=== PATIENT | male | born 1965 | race Caucasian/White ===

== ENCOUNTER 2016-06-04 | Outpatient (CLI) | payer MEDICAID | END 2016-06-04 23:21 | disposition critical access hospital (66) | CPT/HCPCS: A0425; A0429 ==

== ENCOUNTER 2016-06-04 23:54 | Emergency (ER) | payer MEDICAID ==
[2016-06-05] MEDS ORDERED: oxyCODONE 5 MG TABLET PO STA (03:36)
[2016-06-05] MEDS ORDERED: oxyCODONE 5 MG TABLET ONE (03:38)
== END 2016-06-05 03:59 | disposition home or self-care (01) ==
DX: S22.32XA Fracture of one rib, left side, initial encounter for closed fracture (principal); W01.0XXA Fall on same level from slipping, tripping and stumbling without subsequent striking against object, initial encounter; Y92.009 Unspecified place in unspecified non-institutional (private) residence as the place of occurrence of the external cause; F17.200 Nicotine dependence, unspecified, uncomplicated
CPT/HCPCS: 71101; 99283; A9270

== ENCOUNTER 2017-12-01 13:43 | Outpatient (CLI) | payer MEDICAID ==
--- NOTE | 2017-12-01 15:07 | XRAY Report ---
Procedure Date: 12/01/2017 Accession Number: [id number] / [id number] Procedure: XRS - Foot 3 View LT CPT Code: FULL RESULT: EXAM: LEFT FOOT RADIOGRAPHY EXAM DATE: 12/01/2017 02:02 PM. CLINICAL HISTORY: Grand mal seizure last night. Injury. Pain dorsal aspect of the midfoot in the area of the tarsals and proximal metatarsals. COMPARISON: Left calcaneus 07/13/2013. TECHNIQUE: 3 views. FINDINGS: Bones: Normal. No fractures or bone lesions. Joints: Normal. No subluxations. Soft Tissues: Normal. No soft tissue swelling. IMPRESSION: Normal foot radiography. [facility]
== END 2017-12-01 13:44 | disposition home or self-care (01) ==
LOC: DI.S 13:43
PROVIDERS: ATTEND Nurse Practitioner Family
DX: M79.672 Pain in left foot (principal); W18.39XA Other fall on same level, initial encounter; G40.909 Epilepsy, unspecified, not intractable, without status epilepticus

== ENCOUNTER 2018-04-06 08:00 | Outpatient (CLI) | payer MEDICAID | END 2018-04-06 23:59 | disposition home or self-care (01) | LOC: LAB.S 08:00 | DX: G40.219 Localization-related (focal) (partial) symptomatic epilepsy and epileptic syndromes with complex partial seizures, intractable, without status epilepticus (principal) | CPT/HCPCS: 36415; 80346; 81599 ==

== ENCOUNTER 2018-11-23 22:47 | Outpatient (CLI) | payer MEDICAID | END 2018-11-23 22:48 | disposition critical access hospital (66) | LOC: EMS 22:47 | PROVIDERS: ATTEND Surgery | DX: R07.81 Pleurodynia (principal); X58.XXXA Exposure to other specified factors, initial encounter; Y92.009 Unspecified place in unspecified non-institutional (private) residence as the place of occurrence of the external cause | CPT/HCPCS: A0425; A0429; A0999 ==

== ENCOUNTER 2018-11-23 23:20 | Emergency (ER) | payer MEDICAID ==
--- NOTE | 2018-11-23 23:25 | ED Physician Documentation ---
PD HPI TRUNK INJURY - Stated complaint Stated Complaint: PAIN S/P SIEZURE - History obtained from History obtained from: Patient, EMS - History of Present Illness Location: Posterior chest, Right chest, Right back Type of injury: Fall (He was sitting in a chair in believes he had a seizure and fell backwards. He had been drinking as well. He does have a history of seizure disorder and states he averages several per month despite being on antiseizure medicines. He does have a neurologist that he follows with and has been on several different antiepileptics and the current regimen has been the best improvement. He does drink alcohol regularly as well. He fell backwards and struck the right posterior lateral ribs area and hurts there. He denies hitting his head or neck.) Timing - onset: How many minutes ago (30), Today Timing - details: Abrupt onset, Still present Quality: Pain, Sharp Improved by: Rest Worsened by: Moving, Palpating (right posterolateral lower ribs without crepitance.) Associated symtptoms: No: Weakness, Numbness, Discoloration Contributing factors: No: Anticoagulated Where injury occured: Home Similar symptoms before: Diagnosis (He states he had previously broken a couple of ribs in that area that have healed over time and had not been still hurting him.) Review of Systems Constitutional: denies: Fever, Chills Nose: denies: Rhinorrhea / runny nose, Congestion Throat: denies: Sore throat Cardiac: reports: Chest pain / pressure. denies: Palpitations, Pedal edema, Calf pain Respiratory: denies: Dyspnea, Cough GI: denies: Abdominal Pain, Nausea, Diarrhea Skin: denies: Abrasion (s), Laceration (s) Musculoskeletal: reports: Back pain. denies: Neck pain Neurologic: denies: Headache PD PAST MEDICAL HISTORY - Past Medical History Cardiovascular: None Respiratory: None Endocrine/Autoimmune: None GI: None : None HEENT: None Psych: Depression, Anxiety, Panic attacks, Post traumatic stress disorder, Claustrophobia Musculoskeletal: None Derm: None - Present Medications Home Medications: Ambulatory Orders Medication Instructions Recorded Confirmed OXcarbazepine [Trileptal] 900 mg PO BID 10/09/12 06/05/16 Clobazam [Onfi] 10 mg PO DAILY PM 05/24/15 06/05/16 RX: Mirtazapine 15 mg PO DAILY 05/24/15 06/05/16 RX: Prazosin [Minipress] 5 mg PO DAILY PM 05/24/15 06/05/16 RX: oxyCODONE [Roxicodone] 5 mg PO Q6H PRN #20 tablet 06/05/16 RX: raNITIdine [Zantac] 1 tab PO DAILY 06/05/16 06/05/16 Sildenafil Citrate [Sildenafil] 100 mg PO 11/23/18 Hydrocodone/Acetaminophen [Yoder 1 each PO Q6H PRN #20 tablet 11/24/18 5-325 Tablet] RX: Naproxen 375 mg PO BID #20 tablet 11/24/18 - Allergies Allergies/Adverse Reactions: Allergies Allergy/AdvReac Type Severity Reaction Status Date / Time zonisamide Allergy Unknown Verified 11/23/18 23:27 - Social History Does the pt smoke?: Yes Smoking Status: Current every day smoker Does the pt drink ETOH?: Yes Does the pt have substance abuse?: No - Immunizations Immunizations are current?: Yes Immunizations: TDAP >10years/unknown - POLST Patient has POLST: No PD ED PE NORMAL - Vitals Vital signs reviewed: Yes - General General: Alert and oriented X 3, No acute distress, Well developed/nourished - HEENT HEENT: Atraumatic, Pharynx benign - Neck Neck: Supple, no meningeal sign, No bony TTP, No adenopathy - Cardiac Cardiac: RRR - Respiratory Respiratory: No respiratory distress, Clear bilaterally, Other (There is tenderness along the posterior lateral lowest ribs in the posterior axillary line. There is no obvious crepitance or deformity. There is point tenderness however. The abdomen is soft and nontender.) - Abdomen Abdomen: Soft, Non tender - Back Back: No spinal TTP - Derm Derm: Normal color, Warm and dry - Neuro Neuro: Alert and oriented X 3, No motor deficit, Normal speech Results - Vitals Vitals: Vital Signs - 24 hr 11/23/18 11/23/18 11/24/18 23:22 23:29 00:14 Temperature 36.8 C Heart Rate 100 95 88 Respiratory 20 16 Rate Blood Pressure 144/108 H 117/93 H O2 Saturation 94 92 08/06/19 08/06/19 08/06/19 00:19 00:20 01:05 Temperature Heart Rate 88 Respiratory 14 Rate Blood Pressure 110/86 H O2 Saturation 89 L 95 97 11/24/18 02:10 Temperature Heart Rate 84 Respiratory 16 Rate Blood Pressure 103/86 H O2 Saturation 96 Oxygen O2 Source Nasal cannula Oxygen Flow Rate 2 - Labs Labs: Laboratory Tests 11/23/18 11/23/18 23:45 23:45 WBC 5.1 RBC 4.29 L Hgb 14.1 Hct 41.8 L MCV 97.4 H MCH 32.9 H MCHC 33.7 RDW 14.1 Plt Count 166 MPV 8.5 Neut # (Auto) 2.6 Lymph # (Auto) 1.8 [place] # (Auto) 0.5 Eos # (Auto) 0.2 Baso # (Auto) 0.0 Absolute Nucleated RBC 0.00 Nucleated RBC % 0.0 Sodium 139 Potassium 3.8 Chloride 98 L Carbon Dioxide 22 Anion Gap 19.0 H BUN 10 Creatinine 0.8 Estimated GFR (MDRD) 101 Glucose 95 Calcium 9.0 Total Bilirubin 0.5 AST 81 H ALT 54 Alkaline Phosphatase 58 Total Protein 7.6 Albumin 4.5 Globulin 3.1 Albumin/Globulin Ratio 1.5 Lipase 46 Ethyl Alcohol 285.0 - Rads (name of study) chest/abd/pelvis CT (trauma) Radiology: Prelim report reviewed (right posterior rib fractures 11 and 12; healed old fractures at 9 and 10. No lung nor kidney injuries.), See rad report PD MEDICAL DECISION MAKING - ED course Complexity details: re-evaluated patient (He had 2 brief 30-62nd episodes where his arms tensed up and he held them up in the air with slight wavering or clonus. The legs did not have any clonic movements. The face did not have any twitching. He was not responding during that time. This lasted just 30 to 60 seconds and then ceased and he open his eyes immediately and asked what happened. He was immediately conversant and oriented. This did not look like a true seizure.), considered differential, d/w patient, d/w family (His mother subsequently arrived and felt comfortable bringing him home. He does have history of alcohol use regularly. He is reminded that this does not help his seizure disorder. He is comfortable at this time with the pain medications and treatment of the ribs. He has had previous rib injuries so feels familiar. He is discharged ambulatory without assistance.) Departure - Departure Disposition: 01 Home, Self Care Clinical Impression: Fall due to seizure, Seizure disorder Alcohol intoxication Qualifiers: Complication of substance-induced condition: uncomplicated Qualified Code(s): F10.920 - Alcohol use, unspecified with intoxication, uncomplicated Fracture of rib Qualifiers: Encounter type: initial encounter Rib fracture type: multiple ribs Fracture type: closed Laterality: right Qualified Code(s): S22.41XA - Multiple fractures of ribs, right side, initial encounter for closed fracture Condition: Stable Record reviewed to determine appropriate education?: Yes Instructions: ED Alcohol Intoxication, ED Fx Rib Prescriptions: Hydrocodone/Acetaminophen [Yoder 5-325 Tablet] 1 each PO Q6H PRN #20 tablet PRN Reason: Pain RX: Naproxen 375 mg PO BID #20 tablet Comments: Stay well-hydrated. Use naproxen anti-inflammatory twice daily with food for inflammation and pain. To that add Tylenol or hydrocodone if needed for pains of the rib fractures. Purposeful deep breathing several times a day to maintain good aeration in the lungs. Continue usual seizure medicines. Be mindful that alcohol will affect her seizure threshold so will be moderate to minimal and your alcohol consumption. Follow-up with your primary care later this week or early next week, call for an appointment. Discharge Date/Time: 11/24/18 02:27
[2018-11-23] MEDS ORDERED: SODIUM CHLORIDE 0.9% 1,000 ML IV ONE (23:37)
[2018-11-23] MEDS ORDERED: MORPHINE 10 MG/ML VIAL IVP STA (23:37)
[2018-11-23] MEDS ORDERED: KETOROLAC 30 MG/ML VIAL IVP STA (23:37)
[2018-11-23] MEDS ORDERED: LORazepam 2 MG/ML VIAL IVP STA (23:46)
[2018-11-23 23:53] LABS: BASOPHILS % (AUTO) 0.4 %; EOSINOPHILS # (AUTO) 0.2 10^3/uL (0.0-0.7); EOSINOPHILS % (AUTO) 3.9 %; HGB - HEMOGLOBIN 14.1 g/dL (14.0-18.0); LYMPHOCYTES # (AUTO) 1.8 10^3/uL (1.5-3.5); LYMPHOCYTES % (AUTO) 34.4 %; MEAN CORPUSCULAR HEMOGLOBIN 32.9 pg (27.0-31.0); MEAN CORPUSCULAR HGB CONC 33.7 g/dL (32.0-36.0); MEAN CORPUSCULAR VOLUME 97.4 fL (80.0-94.0); MEAN PLATELET VOLUME 8.5 fL (7.4-11.4); MONOCYTES # (AUTO) 0.5 10^3/uL (0.0-1.0); MONOCYTES % (AUTO) 9.4 %; NEUTROPHILS # (AUTO) 2.6 10^3/uL (1.5-6.6); NEUTROPHILS % (AUTO) 51.3 %; PLT - PLATELET COUNT 166 10^3/uL (130-450); RED BLOOD COUNT 4.29 10^6/uL (4.70-6.10); RED CELL DISTRIBUTION WIDTH 14.1 % (12.0-15.0); WHITE BLOOD COUNT 5.1 x10^3/uL (4.8-10.8)
[2018-11-24 00:09] LABS: ALBUMIN 4.5 g/dL (3.2-5.5); ALBUMIN/GLOBULIN RATIO 1.5 (1.0-2.2); BILIRUBIN,TOTAL 0.5 mg/dL (0.2-1.0); CREATININE 0.8 mg/dL (0.6-1.2); TOTAL PROTEIN 7.6 g/dL (6.7-8.2)
[2018-11-24] MEDS ORDERED: IOVERSOL 320 100 ML VIAL IVP ONE ×2 (01:04)
--- NOTE | 2018-11-24 01:38 | CT Report ---
Reason: fall with right flank/ribs injury Procedure Date: 11/24/2018 Accession Number: [id number] / [id number] Procedure: CT - Abdomen/Pelvis W CPT Code: FULL RESULT: EXAM: CT ABDOMEN AND PELVIS EXAM DATE: 11/24/2018 01:00 AM. CLINICAL HISTORY: Fall with right flank/ribs injury. COMPARISONS: None. TECHNIQUE: Routine helical CT imaging was performed through the abdomen and pelvis. IV contrast: 100 mL Optiray 320. Enteric contrast: No. Reconstructions: Coronal and sagittal. In accordance with CT protocol optimization, one or more of the following dose reduction techniques were utilized for this exam: automated exposure control, adjustment of mA and/or KV based on patient size, or use of iterative reconstructive technique. FINDINGS: Lung Bases: Unremarkable. Liver: The liver demonstrates slightly decreased attenuation with no focal lesions. Gallbladder/Bile Ducts: Unremarkable. Spleen: Normal. Pancreas: Normal. Adrenal Glands: Normal. Kidneys: Normal. No masses or hydronephrosis. Peritoneal Cavity/Bowel: Normal. No free fluid, free air or adenopathy. No masses or acute inflammatory process. The appendix is well-visualized and normal. Pelvic Organs: Normal. The bladder and visualized pelvic organs are within normal limits. Vasculature: Atherosclerotic aorta changes without evidence of aneurysm. Bones: Posterior right 12th rib fracture. There are healing right lateral 9th and 10th rib fractures. Other: None. IMPRESSION: 1. Posterior right 12th rib fracture. 2. No acute solid or hollow abdominal visceral injury. [facility]
--- NOTE | 2018-11-24 01:39 | CT Report ---
Reason: fall with right ribs/flank injury Procedure Date: 11/24/2018 Accession Number: [id number] / [id number] Procedure: CT - CHEST W CPT Code: FULL RESULT: EXAM: CT CHEST EXAM DATE: 11/24/2018 01:00 AM. CLINICAL HISTORY: Fall with right ribs/flank injury. COMPARISONS: CHEST W/ 04/08/2014 10:44 AM. TECHNIQUE: Routine helical CT imaging was performed through the chest. IV contrast: Nonionic. Reconstructions: Coronal and sagittal. In accordance with CT protocol optimization, one or more of the following dose reduction techniques were utilized for this exam: automated exposure control, adjustment of mA and/or KV based on patient size, or use of iterative reconstructive technique. FINDINGS: Lungs/Pleura: Emphysema. No alveolar consolidations seen. No significant pleural effusion. No pneumothorax. Mediastinum: Heart size is normal. Coronary artery calcifications. No lymphadenopathy seen. Ascending aorta measures 3.6 cm. No aortic dissection. Wall thickening in the distal esophagus. Bones: Right 11th and 12th rib fractures which appear acute. Right ninth and 10th rib fractures which could be acute or subacute. Left 10th rib fracture which appears older. Visualized Abdomen: See separate abdomen and pelvis CT report. Other: None. IMPRESSION: 1. Acute fractures of the right 11th and 12th ribs. Acute versus subacute fractures of the right ninth and 10th ribs. 2. Emphysema. 3. Coronary artery calcifications. 4. Wall thickening in the distal esophagus. Correlate for any symptoms of esophagitis. [facility]
--- NOTE | 2018-11-24 01:46 | CT Report ---
Reason: recurrent seizures Procedure Date: 11/24/2018 Accession Number: [id number] / [id number] Procedure: CT - HEAD WO CPT Code: FULL RESULT: EXAM: CT HEAD EXAM DATE: 11/24/2018 01:08 AM. CLINICAL HISTORY: Recurrent seizures. COMPARISON: HEAD W/O 05/24/2015 5:52 AM. TECHNIQUE: Multiaxial CT images were obtained from the foramen magnum to the vertex. Reformats: Sagittal and coronal. IV contrast: None. In accordance with CT protocol optimization, one or more of the following dose reduction techniques were utilized for this exam: automated exposure control, adjustment of mA and/or KV based on patient size, or use of iterative reconstructive technique. FINDINGS: Parenchyma: No intraparenchymal hemorrhage. No evidence of mass, midline shift, or CT findings of infarction. Small focus of encephalomalacia at the inferior aspect of the right frontal lobe. Briceno-white differentiation is distinct. Extraaxial Spaces: Normal for age. No subdural or epidural collections identified. Ventricles: Mildly prominent for age. Sinuses and Orbits: Imaged paranasal sinuses, orbits, and mastoids show no significant abnormality. Bones: No evidence of fracture or calvarial defect. Other: There is contrast enhancement from prior examinations. No abnormal enhancement is seen. IMPRESSION: 1. Ventricles appear mildly prominent but unchanged. 2. Small focus of encephalomalacia at the inferior aspect of the right frontal lobe, in the area of prior hemorrhage. 3. No acute abnormality seen. [facility]
[2018-11-24 02:11] VITALS: BP 103/86
== END 2018-11-24 02:27 | disposition home or self-care (01) ==
LOC: EDUNIT# → ED 23:20
DX: S22.41XA Multiple fractures of ribs, right side, initial encounter for closed fracture (principal); W07.XXXA Fall from chair, initial encounter; G40.909 Epilepsy, unspecified, not intractable, without status epilepticus; F10.920 Alcohol use, unspecified with intoxication, uncomplicated; F17.200 Nicotine dependence, unspecified, uncomplicated
CPT/HCPCS: 36415; 70450; 71260; 74177; 80053; 80320; 83690; 85025; 96374; 99283; 99284; J2060; Q9967

== ENCOUNTER 2019-05-28 12:59 | Outpatient (CLI) | payer MEDICAID ==
--- NOTE | 2019-05-28 16:55 | XRAY Report ---
Reason: RIB PAIN, LEFT SIDED Procedure Date: 05/28/2019 Accession Number: [id number] / [id number] Procedure: XRS - Ribs w/PA Chest LT CPT Code: Final Report FULL RESULT: EXAM: LEFT RIB RADIOGRAPHY EXAM DATE: 05/28/2019 01:41 PM. CLINICAL HISTORY: RIB PAIN, LEFT SIDED. COMPARISON: RIBS W/PA CHEST LT 06/05/2016 1:12 AM. TECHNIQUE: 1 view of the chest and 2 views of the ribs. FINDINGS: Bones: Lateral right eighth and ninth rib fracture with mild displacement. Lungs: No focal opacities. No pneumothorax. No pleural effusions. Mediastinum: Heart and mediastinal contours are unremarkable. Other: None. IMPRESSION: 1. Lateral right eighth and ninth rib fractures. 2. No pneumothorax or pleural effusion. [facility]
--- NOTE | 2019-05-28 16:56 | XRAY Report ---
Reason: HIP JOINT PAIN, RIGHT Procedure Date: 05/28/2019 Accession Number: [id number] / [id number] Procedure: XRS - Hip w/Pelvis 2-3V RT CPT Code: Final Report FULL RESULT: EXAM: RIGHT HIP RADIOGRAPHY EXAM DATE: 05/28/2019 01:41 PM. CLINICAL HISTORY: HIP JOINT PAIN, RIGHT. COMPARISON: None. TECHNIQUE: 2 views. FINDINGS: Bones: Normal. No fractures or bone lesion. Joints: Normal. No dislocation. The hip joint space is preserved. Soft Tissues: Normal. No soft tissue swelling. IMPRESSION: Normal right hip radiography. [facility]
--- NOTE | 2019-05-28 16:57 | XRAY Report ---
Reason: RIB PAIN LEFT, HIP JOINT RIGHT, KNEE JOINT RIGHT Procedure Date: 05/28/2019 Accession Number: [id number] / [id number] Procedure: XRS - Knee 3 View RT CPT Code: Final Report FULL RESULT: EXAM: RIGHT KNEE RADIOGRAPHY EXAM DATE: 05/28/2019 01:41 PM. CLINICAL HISTORY: RIB PAIN LEFT, HIP JOINT RIGHT, KNEE JOINT RIGHT. COMPARISON: FOOT 3 VIEW LT 12/01/2017 1:59 PM. TECHNIQUE: 3 views. FINDINGS: Bones: Normal. No fractures or bone lesions. Joints: Normal. No effusion. No subluxations. Soft Tissues: Normal. No soft tissue swelling. IMPRESSION: Normal right knee radiography. [facility]
== END 2019-05-28 13:00 | disposition home or self-care (01) ==
LOC: DI.S 12:59
PROVIDERS: ATTEND Family Medicine
DX: S22.41XA Multiple fractures of ribs, right side, initial encounter for closed fracture (principal); M25.551 Pain in right hip; M25.561 Pain in right knee

== ENCOUNTER 2019-06-21 20:58 | Outpatient (CLI) | payer MEDICAID | END 2019-06-21 20:59 | disposition critical access hospital (66) | LOC: EMS 20:58 | PROVIDERS: ATTEND Surgery | DX: S09.92XA Unspecified injury of nose, initial encounter (principal); S01.81XA Laceration without foreign body of other part of head, initial encounter; R41.0 Disorientation, unspecified; W18.30XA Fall on same level, unspecified, initial encounter; Y92.009 Unspecified place in unspecified non-institutional (private) residence as the place of occurrence of the external cause | CPT/HCPCS: A0425; A0429; A0999 ==

== ENCOUNTER 2019-06-21 21:35 | Emergency (ER) | payer MEDICAID ==
--- NOTE | 2019-06-21 22:52 | ED Physician Documentation ---
History of Present Illness - Stated complaint Stated Complaint: ? 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 c/o left hand pain, nasal pain and swelling, and facial lacerations noted by medics. says he has been compliant with medications as prescribed. Admits to drinking some alcohol earlier this evening. Review of Systems Constitutional: reports: Reviewed and negative Eyes: reports: Reviewed and negative Cardiac: reports: Reviewed and negative Respiratory: reports: Reviewed and negative GI: reports: Reviewed and negative Skin: reports: Laceration (s) Musculoskeletal: reports: Extremity pain (left hand), Extremity swelling (left hand). denies: Neck pain, Back pain Neurologic: reports: Head injury, LOC. denies: Generalized weakness, Focal weakness, Numbness, Headache PD PAST MEDICAL HISTORY - Past Medical History Cardiovascular: None Respiratory: None Neuro: Seizure disorder Endocrine/Autoimmune: None GI: None : None HEENT: None Psych: Depression, Anxiety, Panic attacks, Post traumatic stress disorder, Claustrophobia Musculoskeletal: None Derm: None - Present Medications Home Medications: Ambulatory Orders Medication Instructions Recorded Confirmed OXcarbazepine [Trileptal] 900 mg PO BID 10/09/12 06/05/16 Clobazam [Onfi] 10 mg PO DAILY PM 05/24/15 06/05/16 Mirtazapine 15 mg PO DAILY 05/24/15 06/05/16 Prazosin [Minipress] 5 mg PO DAILY PM 05/24/15 06/05/16 oxyCODONE [Roxicodone] 5 mg PO Q6H PRN #20 tablet 06/05/16 raNITIdine [Zantac] 1 tab PO DAILY 06/05/16 06/05/16 Sildenafil Citrate [Sildenafil] 100 mg PO 11/23/18 Hydrocodone/Acetaminophen [[place] 1 each PO Q6H PRN #20 tablet 11/24/18 5-325 Tablet] Naproxen 375 mg PO BID #20 tablet 11/24/18 Hydrocodone/Acetaminophen 1 - 2 each PO Q6H PRN #14 tablet 06/22/19 [Hydrocodon-Acetaminophen 5-325] - Allergies Allergies/Adverse Reactions: Allergies Allergy/AdvReac Type Severity Reaction Status Date / Time zonisamide Allergy Unknown Verified 11/23/18 23:27 - Social History Does the pt smoke?: Yes Smoking Status: Current every day smoker Does the pt drink ETOH?: Yes ETOH Use: Liquor Does the pt have substance abuse?: Yes Substance Use and Type: Marijuana - Immunizations Immunizations are current?: No Immunizations: TDAP >10years/unknown - POLST Patient has POLST: No PD ED PE NORMAL - Vitals Vital signs reviewed: Yes - General General: Alert and oriented X 3, No acute distress, Well developed/nourished - HEENT HEENT: PERRL, EOMI - Neck Neck: Supple, no meningeal sign, No bony TTP - Cardiac Cardiac: RRR, No murmur, No gallop, No rub - Respiratory Respiratory: No respiratory distress, Clear bilaterally - Abdomen Abdomen: Soft, Non tender - Back Back: No spinal TTP - Neuro Neuro: Alert and oriented X 3, bag tester 2-12 intact, No motor deficit, No sensory deficit, Normal speech Eye Opening: Spontaneous Motor: Obeys Commands Verbal: Oriented GCS Score: 15 PD ED PE EXPANDED - HEENT HEENT: PERRL, EOMI. No: Tongue laceration HEENT Visual: 1 - laceration (2 cm length) 2 - laceration (2 cm length, does not involve lid margin nor is it through and through) 3 - bruising, swelling, tenderness - Extremities Extremities: Tenderness, Swelling ASHLEY UE/Hands Visual: 1 - swelling, tenderness Results - Vitals Vitals: Vital Signs - 24 hr 06/21/19 06/21/19 06/22/19 21:42 22:32 00:09 Temperature 36.3 C L Heart Rate 115 H 100 95 Respiratory 22 17 19 Rate Blood Pressure 129/90 H 114/85 H 118/77 O2 Saturation 94 92 94 06/22/19 01:06 Temperature Heart Rate 94 Respiratory 14 Rate Blood Pressure 120/83 H O2 Saturation 94 Oxygen O2 Source Room air - Labs Labs: Laboratory Tests 06/21/19 06/21/19 21:55 21:55 WBC 5.3 RBC 4.01 L Hgb 13.7 L Hct 40.6 L MCV 101.2 H MCH 34.2 H MCHC 33.7 RDW 14.5 Plt Count 167 MPV 9.5 Neut # (Auto) 3.0 Lymph # (Auto) 1.5 [place] # (Auto) 0.6 Eos # (Auto) 0.1 Baso # (Auto) 0.0 Absolute Nucleated RBC 0.00 Nucleated RBC % 0.0 Sodium 139 Potassium 3.2 L Chloride 99 L Carbon Dioxide 23 Anion Gap 17.0 H BUN 9 Creatinine 0.7 Estimated GFR (MDRD) 117 Glucose 107 H Calcium 9.5 Total Bilirubin 0.7 AST 57 H ALT 38 Alkaline Phosphatase 55 Total Protein 6.9 Albumin 4.2 Globulin 2.7 Albumin/Globulin Ratio 1.6 Lipase 52 H Ethyl Alcohol 285.4 - Rads (name of study) CTH' Radiology: Prelim report reviewed, See rad report CT facial bones Radiology: Prelim report reviewed, See rad report left hand xrays Radiology: Prelim report reviewed, See rad report Procedures - Laceration (location) Face right Length in cm: 2 (right eyebrow) Wound type: Linear, Into subcut fat, Clean Neurovascular status: Sensory intact, Motor intact, Vascular intact Tendon involvement: Tendon intact Anesthesia: Lidocaine 1% Wound Preparation: Chlorhexadine Skin layer closure: Prolene, Interrupted, Size #-0 - enter number (6-0) Other: Patient tolerated well, No complications, Neurovascular intact, Tetanus booster given Complexity: Simple Eyelid right Length in cm: 2 (lateral to right eye ) Wound type: Linear Neurovascular status: Sensory intact, Motor intact, Vascular intact Tendon involvement: Tendon intact Anesthesia: Lidocaine 1% Wound Preparation: Chlorhexadine Skin layer closure: Nylon, Interrupted, Running, Size #-0 - enter number (6-0) Other: Patient tolerated well, No complications, Neurovascular intact, Tetanus booster given Complexity: Simple - Splint (location) Upper extremity left Splint applied by: Tech Type of splint: Fiberglass, Thumb spica Other: Patient tolerated well, No complications, Neurovascular intact, Good alignment, Sling provided PD MEDICAL DECISION MAKING - ED course Complexity details: reviewed results, re-evaluated patient, considered differential, d/w patient Departure - Departure Disposition: 01 Home, Self Care Clinical Impression: Syncope, Face lacerations, Hand fracture, left, Nasal fracture Condition: Good Instructions: ED Fx Nasal Conf W X Ray, ED Fx Hand Closed, ED Laceration Facial Sutr Tape, ED Sling, ED Splint Care Fiberglass, ED Fainting Unkn Cause Follow-Up: Leah Nam ARNP [Primary Care Provider] - Partha Hankins MD [Provider Admit Priv/Credential] - Prescriptions: Hydrocodone/Acetaminophen [Hydrocodon-Acetaminophen 5-325] 1 - 2 each PO Q6H PRN #14 tablet PRN Reason: pain Comments: Follow up with orthopedic surgery within 5 days for evaluation of the left hand fracture. Follow up with your primary care provider in one week for removal of the stitches (adjacent to right eye as well as in the right eyebrow; blue sutures were used on the eyebrow to make it easier to see the sutures for removal). You should also follow up with a specialist regarding the nasal fracture; follow up should be within 4-5 days and can be with ENT ([id number]), OMFS (oroma xillofacial surgery), or plastic surgery. Discharge Date/Time: 06/22/19 01:35
[2019-06-21] MEDS ORDERED: TETANUS/DIPHTHERIA/PERTUSSIS 0.5 ML SYRINGE IM ONE (23:09)
[2019-06-21 23:29] LABS: BASOPHILS % (AUTO) 0.6 %; EOSINOPHILS # (AUTO) 0.1 10^3/uL (0.0-0.7); EOSINOPHILS % (AUTO) 2.4 %; HGB - HEMOGLOBIN 13.7 g/dL (14.0-18.0); LYMPHOCYTES # (AUTO) 1.5 10^3/uL (1.5-3.5); LYMPHOCYTES % (AUTO) 28.6 %; MEAN CORPUSCULAR HEMOGLOBIN 34.2 pg (27.0-31.0); MEAN CORPUSCULAR HGB CONC 33.7 g/dL (32.0-36.0); MEAN CORPUSCULAR VOLUME 101.2 fL (80.0-94.0); MEAN PLATELET VOLUME 9.5 fL (7.4-11.4); MONOCYTES # (AUTO) 0.6 10^3/uL (0.0-1.0); MONOCYTES % (AUTO) 11.3 %; NEUTROPHILS % (AUTO) 56.5 %; PLT - PLATELET COUNT 167 10^3/uL (130-450); RED BLOOD COUNT 4.01 10^6/uL (4.70-6.10); RED CELL DISTRIBUTION WIDTH 14.5 % (12.0-15.0); WHITE BLOOD COUNT 5.3 x10^3/uL (4.8-10.8)
[2019-06-21] MEDS ORDERED: LIDOCAINE 1% 2 ML VIAL SUBQ STA (23:37)
[2019-06-21 23:39] LABS: ALBUMIN 4.2 g/dL (3.2-5.5); ALBUMIN/GLOBULIN RATIO 1.6 (1.0-2.2); BILIRUBIN,TOTAL 0.7 mg/dL (0.2-1.0); CALCIUM 9.5 mg/dL (8.5-10.3); CREATININE 0.7 mg/dL (0.6-1.2); TOTAL PROTEIN 6.9 g/dL (6.7-8.2)
--- NOTE | 2019-06-21 23:50 | CT Report ---
Reason: syncope, head injury Procedure Date: 06/21/2019 Accession Number: [id number] / [id number] Procedure: CT - HEAD WO CPT Code: Final Report FULL RESULT: EXAM: CT HEAD EXAM DATE: 06/21/2019 11:39 PM. CLINICAL HISTORY: Syncope. Head injury. COMPARISON: HEAD W/O 11/24/2018 12:49 AM. TECHNIQUE: Multiaxial CT images were obtained from the foramen magnum to the vertex. Reformats: Sagittal and coronal. IV contrast: None. In accordance with CT protocol optimization, one or more of the following dose reduction techniques were utilized for this exam: automated exposure control, adjustment of mA and/or KV based on patient size, or use of iterative reconstructive technique. FINDINGS: Parenchyma: No intraparenchymal hemorrhage. Stable small area of inferior right frontal lobe encephalomalacia. No evidence of mass, midline shift, or CT findings of infarction. Briceno-white differentiation is distinct. Extraaxial Spaces: Normal for age. No subdural or epidural collections identified. Ventricles: Normal in size and position. Sinuses and Orbits: Imaged paranasal sinuses, orbits, and mastoids show no significant abnormality. Bones: No evidence of fracture or calvarial defect. Other: None. IMPRESSION: No acute intracranial abnormality or skull fracture identified. [facility]
--- NOTE | 2019-06-21 23:56 | CT Report ---
Reason: syncope, facial injuries Procedure Date: 06/21/2019 Accession Number: [id number] / [id number] Procedure: CT - MAXILLOFACIAL WO CPT Code: Final Report FULL RESULT: EXAM: CT MAXILLOFACIAL WITHOUT CONTRAST EXAM DATE: 06/21/2019 11:39 PM CLINICAL HISTORY: Syncope, facial injuries. COMPARISONS: HEAD W/O 06/21/2019 11:26 PM, HEAD W/O 11/24/2018 12:49 AM. TECHNIQUE: Thin-section axial images were acquired of the face without contrast. Post-processing: Coronal and sagittal reformats. Other: None. In accordance with CT protocol optimization, one or more of the following dose reduction techniques were utilized for this exam: automated exposure control, adjustment of mA and/or KV based on patient size, or use of iterative reconstructive technique. FINDINGS: Bones: Moderately comminuted bilateral nasal fractures with leftward angulation of the major fracture fragments. No other displaced fracture or bone lesion. Temporomandibular Joints: The temporomandibular joints are symmetric and normally located. Sinuses: No significant abnormality with note of minimal mucosal thickening in the right maxillary sinus and opacification of a couple of ethmoid air cells. Other: None. IMPRESSION: Moderately comminuted bilateral nasal fractures with leftward angulation of the major fracture fragments. RADIA
--- NOTE | 2019-06-22 00:37 | XRAY Report ---
Reason: fall, pain, tenderness Procedure Date: 06/22/2019 Accession Number: [id number] / [id number] Procedure: XR - Hand 3 View LT CPT Code: Final Report FULL RESULT: EXAM: LEFT HAND RADIOGRAPHY EXAM DATE: 06/22/2019 12:26 AM. CLINICAL HISTORY: Fall, pain, tenderness. COMPARISON: None. TECHNIQUE: 3 views. FINDINGS: Bones: Fractured base of the first metacarpal, with mild comminution and intra-articular extension and radial subluxation of the distal fracture segment. Joints: No dislocations. A portion of the base of the first metacarpal is still articulating with the trapezium. Soft Tissues: Mild soft tissue swelling. IMPRESSION: Comminuted fracture of the base of the first metacarpal with intra-articular extension. RADIA
[2019-06-22] MEDS ORDERED: oxyCODONE 5 MG TABLET PO STA (00:59)
[2019-06-22 01:08] VITALS: BP 120/83
== END 2019-06-22 01:35 | disposition home or self-care (01) ==
LOC: EDUNIT# → ED 21:35
DX: S01.81XA Laceration without foreign body of other part of head, initial encounter (principal); S01.111A Laceration without foreign body of right eyelid and periocular area, initial encounter; S02.2XXA Fracture of nasal bones, initial encounter for closed fracture; S62.232A Other displaced fracture of base of first metacarpal bone, left hand, initial encounter for closed fracture; W18.30XA Fall on same level, unspecified, initial encounter; F17.200 Nicotine dependence, unspecified, uncomplicated
CPT/HCPCS: 12013; 36415; 70450; 70486; 73130; 80053; 80320; 83690; 85025; 90471; 90715; 93005; 99284; A9270

== ENCOUNTER 2020-03-14 07:34 | Outpatient (CLI) | payer MEDICAID ==
--- NOTE | 2020-03-14 12:31 | PROVIDER PROGRESS NOTE ---
Progress Note Chief complaint: Traumatic fall following seizure History of present illness: 55-year-old male with history of seizure disorder on multiple antiepileptic's who is notable for a past history of periictal trauma including intracranial hemorrhage who presents today following 2 episodes unwitnessed seizure activity with resultant rib fractures/scapular fracture. Seen in the emergency room and requested for trauma evaluation. Patient obviously is amnestic to event. Again as per above, this was not witnessed. Patient reports having gotten up overnight having suffered seizure with resultant right chest wall pain as well as back pain, and again suffered a subsequent seizure for which she continued to have right chest pain and back pain postictal. Only significant history is prior intracranial hemorrhage by report again related to seizure activity. Seizure disorder diagnosed 10 years prior and unrelated to trauma or other associated inciting pathology. Past medical history and past surgical history reviewed and, in the patients, electronic medical record. Allergies reviewed and within the patient's electronic medical record. Medications reviewed and within the patient's electronic medical record. Review of systems performed and all negative except as noted below/above Please see electronic medical record for the patient's social history Trauma physical exam: Airway: Patient speaking without any respiratory distress, bilateral breath sounds auscultated across all lung morales Breathing: Bilateral breath sounds auscultated across all lung morales, imaging with no evidence of pneumothorax or hemothorax Circulation: Patient with bilateral peripheral IV access, IV crystalloids running as per protocol, hemodynamically acceptable Patient was evaluated across all extremities please see below and was appropriately exposed to afford such. 1. Head: PERRLA, EOMI, no david orbital ecchymoses, ears with tympanic membranes intact no otorrhea, no rhinorrhea, c-collar NOT in place, cranial nerves II through XII intact grossly. 2. C-spine clearance: No tenderness to palpation on full range of motion: Full range of motion with no tenderness midline C-spine on flexion and extension Full range of motion with known tenderness midline C-spine on lateral rotation left and right 3. Chest as per above with equal breath sounds bilaterally Right chest wall, notably posterior, tenderness - no crepitus or other concerning features please see imaging below no splinting no respiratory distress. 4. S1-S2 regular rate rhythm 5. Abdomen soft nontender nondistended no rebound no guarding, FAST performed with no fluid noted in the splenorenal space, hepatorenal space, suprapubic space, or pericardial sac. 6. Patient moving all extremities 7. GCS 15, alert awake and oriented x3 8. No focal sensorimotor deficits bilaterally, no spinal step-offs or tenderness along the thoracic, lumbar spines. 9. No genitourinary complaints or perianal complaints. Imaging: CT chest impression: 1. Unchanged emphysematous changes. 2. Linear right basilar opacity suggestive of atelectasis/dependent fluid 3. Stable 3 mm nodule since 2014. No priors are available for comparison. 4. Acute/subacute right lateral sixth, seventh as well as posterior right ninth and 10th rib fractures are present. No pneumothorax. 5. Fractures present in the inferior aspect of the right scapula CT abdomen pelvis: 1. Minimal posterior right basilar atelectasis 2. Old right rib fractures 3. No evidence of acute abdominal process CT head impression: 1. No acute intracranial process CT C-spine impression: degenerative changes without visualization fracture Right humerus x-ray: Mildly displaced fracture at the inferior angle of the scapula. Possible minimally displaced rib fractures. Right shoulder film: 1. Small mildly displaced fracture of the inferior tip of the scapula. Finding may be further evaluated with a CT if indicated clinically. 2. Questionably minimally displaced fracture of the right lateral sixth rib. Assessment and plan: 55yo Male Hospital day #0 admitted status post trauma with right scapula and right rib fractures x4 in the setting of multiple seizures. No other occult pathology noted on CT of the head, C-spine, nor chest abdomen pelvis CTs as well. Given extent of injuries patient will be admitted to ICU for pain management. Plan going forward is as follows: (1) GI - IVF, diet. GI ppx. Opiate sparring analgesia. (2) Trauma - tertiary survey. (3) Renal/Lytes - continue IVF. Renal indices within normal limits. (4) Respiratory - O2 as necessary. Continue nebulizers. Continue IS. Chest XR. (5) Heme - Will continue with DVT ppx. H/H stable. (6) Cardiovascular - HD acceptable. (7) Neuro - Opiate sparring analgesia. Continue antiepileptics. Will request medicine/hospitalist consultation to assure appropriate levels and management of seizure disorder. Antispasmodics with Robaxin. Toradol. Neuropathic agents. (8) PT/OT.
== END 2020-03-14 07:35 | disposition home or self-care (01) ==
LOC: EMS 07:34
PROVIDERS: ATTEND Surgery
DX: R07.89 Other chest pain (principal); M43.6 Torticollis; M25.511 Pain in right shoulder
CPT/HCPCS: A0425; A0427; A0999

== ENCOUNTER 2020-03-14 08:13 | Inpatient (IN) | payer MEDICAID ==
[2020-03-14] MEDS ORDERED: KETOROLAC 15 MG/ML VIAL IVP STA (09:04)
--- NOTE | 2020-03-14 09:11 | ED Physician Documentation ---
History of Present Illness - Stated complaint Stated Complaint: SZ/GLF - Chief complaint Chief Complaint: Neuro - History obtained from History obtained from: Patient - Additonal information Additional information: 55-year-old man with past medical history of seizure disorder with multiple seizures a month, on Tegretol (oxcarbazepine) and clobazam, neurologist at [facility], p/w R shoulder and chest wall pain after having two seizures overnight. Patient is unsure of timing but knows that he woke in the middle of the night and had A seizure, went to the bathroom and urinated then w ent back to bed and had another seizure. He waited to go to the emergency room until this morning when he realized he had a bruise on his right upper back and severe right shoulder and lateral chest wall pain. The pain is constant, aching, worse with moving the shoulder, nonradiating.Patient is alert and oriented at baseline, and has no other complaints at this time.States that he felt normal yesterday. Review of Systems Ten Systems: 10 systems reviewed and negative Constitutional: denies: Fever, Chills Respiratory: denies: Cough Skin: reports: Abrasion (s) (R posterolateral chest wall) Musculoskeletal: reports: Other (R shoulder and posterolateral chest wall pain) Neurologic: reports: Seizure PD PAST MEDICAL HISTORY - Past Medical History Cardiovascular: None Respiratory: None Neuro: Seizure disorder Endocrine/Autoimmune: None GI: None : None HEENT: None Psych: Depression, Anxiety, Panic attacks, Post traumatic stress disorder, Claustrophobia Musculoskeletal: None Derm: None - Present Medications Home Medications: Ambulatory Orders Medication Instructions Recorded Confirmed OXcarbazepine [Trileptal] 900 mg PO BID 10/09/12 06/05/16 Clobazam [Onfi] 10 mg PO DAILY PM 05/24/15 06/05/16 Mirtazapine 15 mg PO DAILY 05/24/15 06/05/16 Prazosin [Minipress] 5 mg PO DAILY PM 05/24/15 06/05/16 oxyCODONE [Roxicodone] 5 mg PO Q6H PRN #20 tablet 06/05/16 raNITIdine [Zantac] 1 tab PO DAILY 06/05/16 06/05/16 Sildenafil Citrate [Sildenafil] 100 mg PO 11/23/18 Hydrocodone/Acetaminophen [Hammond 1 each PO Q6H PRN #20 tablet 11/24/18 5-325 Tablet] Naproxen 375 mg PO BID #20 tablet 11/24/18 Hydrocodone/Acetaminophen 1 - 2 each PO Q6H PRN #14 tablet 06/22/19 [Hydrocodon-Acetaminophen 5-325] - Allergies Allergies/Adverse Reactions: Allergies Allergy/AdvReac Type Severity Reaction Status Date / Time zonisamide Allergy Unknown Verified 03/14/20 08:24 - Social History Does the pt smoke?: Yes Smoking Status: Current every day smoker Does the pt drink ETOH?: Yes Does the pt have substance abuse?: Yes - Immunizations Immunizations are current?: No Immunizations: TDAP >10years/unknown - POLST Patient has POLST: No PD ED PE NORMAL - Vitals Vital signs reviewed: Yes - General General: Alert and oriented X 3 - HEENT HEENT: Atraumatic, PERRL, EOMI - Neck Neck: Supple, no meningeal sign, No bony TTP (c spine cleared per nexus criteria) - Cardiac Cardiac: RRR - Respiratory Respiratory: No respiratory distress, Clear bilaterally - Abdomen Abdomen: Non tender, Non distended - Male Male : Deferred - Rectal Rectal: Deferred - Back Back: No spinal TTP - Derm Derm: Other (R lateral upperback ecchymosis/abrasion) - Extremities Extremities: Other (R shoulder ttp and tender with rom. R humerus ttp. 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, No motor deficit, No sensory deficit, Normal speech - Psych Psych: Normal mood, Normal affect Results - Vitals Vitals: Vital Signs - 24 hr 03/14/20 03/14/20 08:17 09:40 Temperature 37.4 C Heart Rate 100 96 Respiratory 18 16 Rate Blood Pressure 120/79 122/92 H O2 Saturation 99 96 Oxygen O2 Source Room air - Labs Labs: Laboratory Tests 03/14/20 03/14/20 03/14/20 10:05 10:05 10:05 WBC 3.9 L RBC 3.24 L Hgb 11.3 L Hct 34.3 L MCV 105.9 H MCH 34.9 H MCHC 32.9 RDW 14.7 Plt Count 129 L MPV 8.4 Neut # (Auto) 2.8 Lymph # (Auto) 0.8 L [place] # (Auto) 0.3 Eos # (Auto) 0.0 Baso # (Auto) 0.0 Absolute Nucleated RBC 0.00 Nucleated RBC % 0.0 Sodium 137 Potassium 3.6 Chloride 100 L Carbon Dioxide 23 Anion Gap 14.0 H BUN 9 Creatinine 0.5 L Estimated GFR (MDRD) 172 Glucose 90 Calcium 8.3 L Total Bilirubin 0.7 AST 53 H ALT 28 Alkaline Phosphatase 59 Total Protein 6.6 L Albumin 4.0 Globulin 2.6 Albumin/Globulin Ratio 1.5 Lipase 30 Last Dose Date UNK Last Dose Time UNK Carbamazepine < 2.0 PD MEDICAL DECISION MAKING - ED course Complexity details: reviewed results, d/w patient ED course: 55-year-old man's presents status post multiple seizures last night, found to have multiple rib fractures on CTAs well as a scapular fracture. Discussed with Dr. Cao, who will admit to his surgical service. Departure - Departure Disposition: 66 [facility] DC/Xfer Clinical Impression: Ribs, multiple fractures, Scapula fracture, Seizure, Fall from standing Condition: Stable
[2020-03-14] MEDS ORDERED: KETOROLAC 30 MG/ML VIAL IVP STA (09:22)
[2020-03-14] MEDS ORDERED: KETOROLAC 30 MG/ML VIAL ONE (09:26)
[2020-03-14] MEDS ORDERED: ALBUTEROL 1 PUFF INH STA (09:45)
--- NOTE | 2020-03-14 09:54 | XRAY Report ---
PROCEDURE: Shoulder 2 View RT INDICATIONS: pain s/p seizure TECHNIQUE: 2 views of the shoulder were acquired. COMPARISON: None. FINDINGS: Bones: There is a small transverse fracture at the inferior angle of the scapula with mild volar disp lacement of the distal fracture fragment, best seen on transscapular Y view. There is a questionable minimally displaced fracture of the right lateral sixth rib. No suspicious bony lesions. Mild degene rative changes are seen at the acromioclavicular joint. Soft tissues: No suspicious soft tissue calcifications. No right pneumothorax is seen. IMPRESSION: 1. Small mildly displaced fracture of the inferior tip of the scapula. Findings may be further evalu ated with CT if indicated clinically. 2. Questionable minimally displaced fracture of the right lateral sixth rib. Reviewed by: Mohit Rodriguez MD on 03/14/2020 9:52 AM [facility] Approved by: Mohit Rodriguez MD on 03/14/2020 9:52 AM [facility] Station ID: [id number]
--- NOTE | 2020-03-14 09:57 | XRAY Report ---
PROCEDURE: Humerus RT INDICATIONS: pain s/p seizure TECHNIQUE: 4 views of the humerus were acquired. COMPARISON: None. FINDINGS: Bones: There is a mildly displaced fracture at the inferior angle of the scapula. Possible lucencies in the lateral lip fractures may represent minimally displaced fractures. No suspicious bony lesions. Soft tissues: No suspicious soft tissue calcifications. IMPRESSION: Mildly displaced fracture at the inferior angle of the scapula. Possible minimally displaced rib frac tures. Reviewed by: Mohit Rodriguez MD on 03/14/2020 9:55 AM PST Approved by: Mohit Rodriguez MD on 03/14/2020 9:55 AM [facility] Station ID: [id number]
--- NOTE | 2020-03-14 09:58 | CT Report ---
PROCEDURE: CHEST WO INDICATIONS: r/o R sided rib fractures TECHNIQUE: Noncontrast 5 mm thick sections acquired from the pulmonary apices to the posterior costophrenic angl es. 7 mm thick coronal and sagittal MIP reformats were then acquired. For radiation dose reduction, the following was used: automated exposure control, adjustment of mA and/or kV according to patient size. COMPARISON: CT chest 11/24/2018, 04/08/2014 FINDINGS: Image quality: Excellent. Lungs and pleura: No acute air space opacities. No pleural effusions or pneumothorax. Central and peripheral airways are patent and normal in caliber. 3 mm nodule is present in the lateral left lowe r lobe on series 4 image 267, unchanged since 2013. Emphysematous changes are present. Scattered khris ear areas are present within the right base. Mediastinum: Heart size is normal. No pericardial effusion. No mediastinal adenopathy by size crit eria. Thoracic aorta and central pulmonary arteries are normal in size. Esophagus is normal in delia johanny. No hiatal hernia. Bones and chest wall: No suspicious bony lesions. No vertebral body compression fractures. No axil alisa or supraclavicular adenopathy by size criteria. The thyroid is normal in size. Right acute/sub acute lateral sixth, seventh rib fractures are present. Posterior acute/subacute right ninth and 10th rib fractures are present. Old posterior 11th and 12th right rib fractures are noted. In addition, t here is a comminuted, nondisplaced fracture identified within the lateral inferior right scapula. Old posterior left rib fractures are present. Abdomen: Visualized upper abdominal solid organs and bowel loops appear normal in the absence of con trast. IMPRESSION: 1. Unchanged emphysematous changes. 2. Linear right basilar opacity suggestive of atelectasis/dependent fluid. 3. Stable 3 mm nodule since 2013. No priors are available for comparison. 4. Acute/subacute right lateral sixth, seventh as well as posterior right ninth and 10th rib fracture s are present. No pneumothorax. 5. Fracture is present in the inferior lateral aspect of the right scapula. Reviewed by: Shakila Flores MD on 03/14/2020 8:57 AM [facility] Approved by: Shakila Flores MD on 03/14/2020 8:57 AM [facility] Station ID: [id number]
[2020-03-14 10:12] LABS: BASOPHILS % (AUTO) 0.5 %; EOSINOPHILS % (AUTO) 0.5 %; HGB - HEMOGLOBIN 11.3 g/dL (14.0-18.0); LYMPHOCYTES # (AUTO) 0.8 10^3/uL (1.5-3.5); LYMPHOCYTES % (AUTO) 20.6 %; MEAN CORPUSCULAR HEMOGLOBIN 34.9 pg (27.0-31.0); MEAN CORPUSCULAR HGB CONC 32.9 g/dL (32.0-36.0); MEAN CORPUSCULAR VOLUME 105.9 fL (80.0-94.0); MEAN PLATELET VOLUME 8.4 fL (7.4-11.4); MONOCYTES # (AUTO) 0.3 10^3/uL (0.0-1.0); MONOCYTES % (AUTO) 8.4 %; NEUTROPHILS # (AUTO) 2.8 10^3/uL (1.5-6.6); NEUTROPHILS % (AUTO) 69.7 %; PLT - PLATELET COUNT 129 10^3/uL (130-450); RED BLOOD COUNT 3.24 10^6/uL (4.70-6.10); RED CELL DISTRIBUTION WIDTH 14.7 % (12.0-15.0); WHITE BLOOD COUNT 3.9 x10^3/uL (4.8-10.8)
[2020-03-14 10:27] LABS: ALBUMIN/GLOBULIN RATIO 1.5 (1.0-2.2); BILIRUBIN,TOTAL 0.7 mg/dL (0.2-1.0); CALCIUM 8.3 mg/dL (8.5-10.3); CREATININE 0.5 mg/dL (0.6-1.2); TOTAL PROTEIN 6.6 g/dL (6.7-8.2)
[2020-03-14 11:13] LABS: CARBAMAZEPINE (TEGRETOL) < 2.0 ug/mL
[2020-03-14] MEDS ORDERED: IOVERSOL 320 100 ML VIAL IVP ONE ×2 (11:41→13:14)
--- NOTE | 2020-03-14 12:16 | CT Report ---
PROCEDURE: CERVICAL SPINE WO INDICATIONS: seizure TECHNIQUE: Noncontrast 3 mm thick sections acquired from the skull base to the T4 level. Sagittal and coronal r eformats were then constructed. For radiation dose reduction, the following was used: automated exp osure control, adjustment of mA and/or kV according to patient size. COMPARISON: CT cervical spine/07/04. FINDINGS: Image quality: Excellent. Bones: No fractures or dislocations. Visualized superior ribs are intact. There is trace retrolisth esis of C3 on C4, unchanged. Multilevel degenerative disc space narrowing is present. Soft tissues: Prevertebral soft tissues are normal in thickness. No paravertebral hematomas. No ap ical pneumothoraces. IMPRESSION: 1. Degenerative changes without visualized fracture. Reviewed by: Shakila Flores MD on 03/14/2020 11:15 AM [facility] Approved by: Shakila Flores MD on 03/14/2020 11:15 AM [facility] Station ID: [id number]
--- NOTE | 2020-03-14 12:19 | CT Report ---
PROCEDURE: HEAD WO INDICATIONS: ams TECHNIQUE: Noncontrast 4.5 mm thick angled axial sections acquired from the foramen magnum to the vertex. For r adiation dose reduction, the following was used: automated exposure control, adjustment of mA and/or kV according to patient size. COMPARISON: CT head 11/24/2018 FINDINGS: Image quality: Mild motion is present. CSF spaces: Basal cisterns are patent. No extra-axial fluid collections. Ventricles are normal in size and shape. Brain: No midline shift. No intracranial masses or hemorrhage. Briceno-white matter interface is norm al. Skull and face: Calvarium and visualized facial bones are intact, without suspicious lesions. Old bilateral nasal bone fractures are noted. Sinuses: Visualized sinuses demonstrate trace minimal scattered pansinus mucosal thickening. IMPRESSION: 1. No acute intracranial process. Reviewed by: Shakila Flores MD on 03/14/2020 11:17 AM [facility] Approved by: Shakila Flores MD on 03/14/2020 11:17 AM [facility] Station ID: [id number]
--- NOTE | 2020-03-14 12:21 | CT Report ---
PROCEDURE: Abdomen/Pelvis W INDICATIONS: trauma, seizure CONTRAST: IV CONTRAST: Optiray 320 ml: 100 PO CONTRAST: *NO PO CONTRAST TECHNIQUE: After the administration of intravenous contrast, 5 mm thick sections acquired from the diaphragms to the symphysis. 5 mm thick coronal and sagittal reformats were acquired. For radiation dose reducti on, the following was used: automated exposure control, adjustment of mA and/or kV according to laquita ent size. COMPARISON: 11/24/2018 FINDINGS: Image quality: Excellent. ABDOMEN: Lung bases: Minimal posterior right basilar atelectasis. Heart size is normal. Solid organs: Liver and spleen are normal in size and enhancement. Gallbladder is unremarkable Reji iary system is non dilated. Pancreas enhances normally. No adrenal nodules. Kidneys demonstrate no rmal size and enhancement, without hydronephrosis. Peritoneum and bowel: Bowel loops demonstrate normal wall thickness and caliber. No free fluid or a ir. Nodes and vessels: No retroperitoneal or mesenteric adenopathy by size criteria. Aorta and inferior vena cava are normal in size. Miscellaneous: No ventral hernias. PELVIS: Genitourinary: Bladder wall thickness is normal. Miscellaneous: No inguinal hernias or adenopathy. Bones: No suspicious bony lesions. Old posterior right rib fractures. No acute lower rib fractures i dentified. No vertebral body compression fractures. IMPRESSION: 1. Minimal posterior right basilar atelectasis. 2. Old right rib fractures. 3. No evidence of acute abdominal process. Reviewed by: Juan Luis Weiss MD on 03/14/2020 12:19 PM PST Approved by: Juan Luis Weiss MD on 03/14/2020 12:19 PM PST Station ID: [id number]
[2020-03-14] MEDS ORDERED: SODIUM CHLORIDE FLUSH 0.9% 10 ML SYRINGE IVP PRN (15:54)
[2020-03-14] MEDS ORDERED: ALBUTEROL NEB 2.5 MG/3 ML INH PRN (15:54)
[2020-03-14] MEDS ORDERED: ACETAMINOPHEN 1,000 MG/100 ML 100 ML IV PRN (15:54)
[2020-03-14] MEDS ORDERED: METOCLOPRAMIDE 10 MG/2 ML VIAL IVP PRN (15:54)
[2020-03-14] MEDS ORDERED: ONDANSETRON 4 MG/2 ML VIAL IVP PRN (15:54)
--- NOTE | 2020-03-14 16:22 | PROVIDER PROGRESS NOTE ---
Progress Note Progress Note Chief complaint: Traumatic fall following seizure History of present illness: 55-year-old male with history of seizure disorder on multiple antiepileptic's who is notable for a past history of periictal trauma including intracranial hemorrhage who presents today following 2 episodes unwitnessed seizure activity with resultant rib fractures/scapular fracture. Seen in the emergency room and requested for trauma evaluation. Patient obviously is amnestic to event. Again as per above, this was not witnessed. Patient reports having gotten up overnight having suffered seizure with resultant right chest wall pain as well as back pain, and again suffered a subsequent seizure for which she continued to have right chest pain and back pain postictal. Only significant history is prior intracranial hemorrhage by report again related to seizure activity. Seizure disorder diagnosed 10 years prior and unrelated to trauma or other associated inciting pathology. Past medical history and past surgical history reviewed and, in the patients, electronic medical record. Allergies reviewed and within the patient's electronic medical record. Medications reviewed and within the patient's electronic medical record. Review of systems performed and all negative except as noted below/above Please see electronic medical record for the patient's social history Trauma physical exam: Airway: Patient speaking without any respiratory distress, bilateral breath sounds auscultated across all lung morales Breathing: Bilateral breath sounds auscultated across all lung morales, imaging with no evidence of pneumothorax or hemothorax Circulation: Patient with bilateral peripheral IV access, IV crystalloids running as per protocol, hemodynamically acceptable Patient was evaluated across all extremities please see below and was ap propriately exposed to afford such. 1. Head: PERRLA, EOMI, no david orbital ecchymoses, ears with tympanic membranes intact no otorrhea, no rhinorrhea, c-collar NOT in place, cranial nerves II through XII intact grossly. 2. C-spine clearance: No tenderness to palpation on full range of motion: Full range of motion with no tenderness midline C-spine on flexion and extension Full range of motion with known tenderness midline C-spine on lateral rotation left and right 3. Chest as per above with equal breath sounds bilaterally Right chest wall, notably posterior, tenderness - no crepitus or other concerning features please see imaging below no splinting no respiratory distress. 4. S1-S2 regular rate rhythm 5. Abdomen soft nontender nondistended no rebound no guarding, FAST performed with no fluid noted in the splenorenal space, hepatorenal space, suprapubic space, or pericardial sac. 6. Patient moving all extremities 7. GCS 15, alert awake and oriented x3 8. No focal sensorimotor deficits bilaterally, no spinal step-offs or tenderness along the thoracic, lumbar spines. 9. No genitourinary complaints or perianal complaints. Imaging: CT chest impression: 1. Unchanged emphysematous changes. 2. Linear right basilar opacity suggestive of atelectasis/dependent fluid 3. Stable 3 mm nodule since 2014. No priors are available for comparison. 4. Acute/subacute right lateral sixth, seventh as well as posterior right ninth and 10th rib fractures are present. No pneumothorax. 5. Fractures present in the inferior aspect of the right scapula CT abdomen pelvis: 1. Minimal posterior right basilar atelectasis 2. Old right rib fractures 3. No evidence of acute abdominal process CT head impression: 1. No acute intracranial process CT C-spine impression: degenerative changes without visualization fracture Right humerus x-ray: Mildly displaced fracture at the inferior angle of the scapula. Possible minimally displaced rib fractures. Right shoulder film: 1. Small mildly displaced fracture of the inferior tip of the scapula. Finding may be further evaluated with a CT if indicated clinically. 2. Questionably minimally displaced fracture of the right lateral sixth rib. Assessment and plan: 55yo Male Hospital day #0 admitted status post trauma with right scapula and right rib fractures x4 in the setting of multiple seizures. No other occult pathology noted on CT of the head, C-spine, nor chest abdomen pelvis CTs as well. Given extent of injuries patient will be admitted to ICU for pain management. Plan going forward is as follows: (1) GI - IVF, diet. GI ppx. Opiate sparring analgesia. (2) Trauma - tertiary survey. (3) Renal/Lytes - continue IVF. Renal indices within normal limits. (4) Respiratory - O2 as necessary. Continue nebulizers. Continue IS. Chest XR. (5) Heme - Will continue with DVT ppx. H/H stable. (6) Cardiovascular - HD acceptable. (7) Neuro - Opiate sparring analgesia. Continue antiepileptics. Will request medicine/hospitalist consultation to assure appropriate levels and management of seizure disorder. Antispasmodics with Robaxin. Toradol. Neuropathic agents. (8) PT/OT.
--- NOTE | 2020-03-14 17:38 | PHARMACY PROGRESS NOTE ---
- Best Possible Medication History Admit Date and Time: 03/14/20 1554 Processed by: Pharmacy Medication History completed: Yes Patient Interview: Completed Secondary Source(s): Insurance records As the person ultimately responsible for medication therapy, providers are able to order a medication from an existing home medication list in [facility] via the "Reconcile Routine" prior to Confirmation of that medication by technical support technician. Such practice is discouraged except when the physician, in their clinical judgment, deems that a medical need exists for a medication without regard to previous use.
[2020-03-14] MEDS: D5NS W/20 MEQ KCL 1,000 ML IV SCH (17:49)
[2020-03-14] MEDS: KETOROLAC 15 MG/ML VIAL IVP SCH (17:57)
[2020-03-14] MEDS ORDERED: LIDOCAINE PATCH 5% TOP ONE (18:00)
[2020-03-14] MEDS: methocarbamoL 500 MG TABLET PO SCH (19:21)
[2020-03-14] MEDS: SODIUM CHLORIDE FLUSH 0.9% 10 ML SYRINGE IVP SCH (19:24)
[2020-03-14] MEDS: IPRATROPIUM/ALBUTEROL 3 ML NEB INH SCH (21:07)
[2020-03-14] MEDS: OXcarbazepine 150 MG TABLET PO SCH (21:13)
[2020-03-14] MEDS: MIRTAZAPINE 15 MG TABLET PO SCH (21:14)
[2020-03-14] MEDS: DOCUSATE SODIUM 100 MG CAPSULE PO SCH (21:15)
[2020-03-14] MEDS: HEPARIN 5,000 UNIT/ML VIAL SUBQ SCH (21:16)
[2020-03-14] MEDS: PRAZOSIN 1 MG CAPSULE PO SCH (21:16)
[2020-03-14] MEDS: CLOBAZAM 10 MG PO SCH (21:18)
[2020-03-14] MEDS: polyethylene glycoL 3350 17 GM PACKET PO SCH (21:18)
[2020-03-14] MEDS: HYDROmorphone 0.5 MG/0.5 ML SYRINGE IVP PRN (22:32)
[2020-03-15] MEDS: KETOROLAC 15 MG/ML VIAL IVP SCH ×4 (00:17→17:51)
[2020-03-15] MEDS: methocarbamoL 500 MG TABLET PO SCH ×5 (00:19→23:35)
[2020-03-15] MEDS: SODIUM CHLORIDE FLUSH 0.9% 10 ML SYRINGE IVP SCH ×3 (00:19→16:41)
[2020-03-15] MEDS: D5NS W/20 MEQ KCL 1,000 ML IV SCH ×3 (01:41→16:40)
[2020-03-15] MEDS: HYDROmorphone 0.5 MG/0.5 ML SYRINGE IVP PRN (02:10)
[2020-03-15 05:03] LABS: BASOPHILS % (AUTO) 0.3 %; EOSINOPHILS # (AUTO) 0.1 10^3/uL (0.0-0.7); HGB - HEMOGLOBIN 10.2 g/dL (14.0-18.0); LYMPHOCYTES % (AUTO) 34.7 %; MEAN CORPUSCULAR HEMOGLOBIN 34.9 pg (27.0-31.0); MEAN CORPUSCULAR HGB CONC 32.1 g/dL (32.0-36.0); MEAN CORPUSCULAR VOLUME 108.9 fL (80.0-94.0); MEAN PLATELET VOLUME 9.2 fL (7.4-11.4); MONOCYTES # (AUTO) 0.2 10^3/uL (0.0-1.0); NEUTROPHILS # (AUTO) 1.7 10^3/uL (1.5-6.6); NEUTROPHILS % (AUTO) 55.7 %; PLT - PLATELET COUNT 126 10^3/uL (130-450); RED BLOOD COUNT 2.92 10^6/uL (4.70-6.10); RED CELL DISTRIBUTION WIDTH 14.8 % (12.0-15.0)
[2020-03-15 05:18] LABS: ALBUMIN 3.6 g/dL (3.2-5.5); ALBUMIN/GLOBULIN RATIO 1.7 (1.0-2.2); BILIRUBIN,TOTAL 1.4 mg/dL (0.2-1.0); CALCIUM 8.2 mg/dL (8.5-10.3); CREATININE 0.9 mg/dL (0.6-1.2); TOTAL PROTEIN 5.7 g/dL (6.7-8.2)
[2020-03-15] MEDS: PANTOPRAZOLE 40 MG VIAL IVP SCH (06:08)
[2020-03-15] MEDS: IPRATROPIUM/ALBUTEROL 3 ML NEB INH SCH ×4 (07:47→19:40)
[2020-03-15] MEDS: IPRATROPIUM 0.2 MG/ML NEB INH SCH ×3 (07:53→11:29)
--- NOTE | 2020-03-15 08:07 | XRAY Report ---
PROCEDURE: Chest 1 View X-Ray INDICATIONS: chest trauma TECHNIQUE: One view of the chest was acquired. COMPARISON: 10/09/2012 FINDINGS: Surgical changes and devices: None. Lungs and pleura: No pleural effusions or pneumothorax. Lungs are clear. Mediastinum: Mediastinal contours appear normal. Heart size is normal. Bones and chest wall: No suspicious bony lesions. Overlying soft tissues appear unremarkable. IMPRESSION: No acute cardiopulmonary disease process. Reviewed by: Kimberly Brown MD, PhD on 03/15/2020 8:06 AM [facility] Approved by: Kimberly Brown MD, PhD on 03/15/2020 8:06 AM [facility] Station ID: [id number]
[2020-03-15] MEDS: polyethylene glycoL 3350 17 GM PACKET PO SCH ×2 (09:00→20:47)
[2020-03-15] MEDS: HEPARIN 5,000 UNIT/ML VIAL SUBQ SCH ×2 (09:00→20:51)
[2020-03-15] MEDS: DOCUSATE SODIUM 100 MG CAPSULE PO SCH ×2 (09:00→20:50)
[2020-03-15] MEDS: NICOTINE 14 MG PATCH TOP SCH (09:00)
[2020-03-15] MEDS: OXcarbazepine 150 MG TABLET PO SCH ×2 (10:17→20:50)
--- NOTE | 2020-03-15 16:23 | CONSULTATION NOTE ---
Referring Provider Name of Referring Provider:: Dr. Simon Snyder Consult Date: 03/15/20 Chief Complaint - Chief Complaint Chief Complaint: Chest pain History of Present Illness - Admitted From Admitted From:: Home - History Obtained From Records Reviewed: Yes History obtained from: Patient, General Surgeon, EMR - History of Present Illness HPI Comment/Other: This is a 55-year-old male with past medical history significant for seizure disorder who presents after having a seizure at home and complaining of right- sided chest pain. The patient tells me he had a seizure this past Friday and he fell on the right side of his chest and he noted he had some bruising and right- sided chest pain. He states he has been here in the hospital for the past 4 days although records clearly state he came to the emergency room yesterday. He notes that today is Friday and tomorrow is . He knows it is February 2020. He states he was last seen in the emergency department here in June for a seizure. He is adamant that he has been here in the hospital for 4 days. States that right-sided chest pain is worse with inspiration. His chest is tender. Reports following with neurology at [facility]. He has had seizures for the past 10 years. He has had tried different medications and is currently on Clobazam and Oxcarbazepine. He states he tried Keppra in the past but did not like side effects. He is allergic to zonisamide. He has tried Lamictal before. He cannot recall if he has tried Dilantin. He states that he does have frequent seizures although cannot state exactly how often. He believes maybe once a month. His neurologist is aware that he is having seizures but the patient does not want to take another antiepileptic and does not want to adjust his current regimen. He states his neurologist has recommended surgical intervention before per the patient does not want to proceed with this. He understands he can continue to have seizures. He reports occasional alcohol use. He would like to be a full code. History - Past Medical History Cardiovascular: reports: None Respiratory: reports: None Neuro: reports: Seizure disorder, Tremors Endocrine/Autoimmune: reports: None GI: reports: None : reports: None HEENT: reports: None Psych: reports: Depression, Anxiety, Panic attacks, Post traumatic stress disorder, Claustrophobia Musculoskeletal: reports: Other Derm: reports: None MRSA Hx?: No Other Past Medical History: beginning to deveop mobility problems, ? cause; pt. is smoker; - Past Surgical History Ortho: reports: Carpal Tunnel surgery, Other - POLST Patient has POLST: No Meds/Allgy - Home Medications Home Medications: Ambulatory Orders Medication Instructions Recorded Confirmed Clobazam [Onfi] 10 mg PO QPM 05/24/15 03/14/20 Mirtazapine 15 mg PO QPM 05/24/15 03/14/20 Naproxen 375 mg PO BID #20 tablet 11/24/18 03/14/20 OXcarbazepine [Trileptal] 600 mg PO BID 03/14/20 03/14/20 Prazosin HCl [Minipress] 2 mg PO QPM 03/14/20 03/14/20 Prazosin HCl [Minipress] 5 mg PO QPM 03/14/20 03/14/20 Sildenafil Citrate [Viagra] 50 - 100 mg PO PRN PRN 03/14/20 03/14/20 - Allergies Allergies/Adverse Reactions: Allergies Allergy/AdvReac Type Severity Reaction Status Date / Time zonisamide Allergy Unknown Verified 03/14/20 08:24 Review of Systems - Constitutional Constitutional: denies: Fever, Chills - Cardiovascular Cariovascular: reports: Chest pain. denies: Exertional dyspnea, Decr. exercise tolerance - Respiratory Respiratory: denies: Cough, SOB at rest, SOB with exertion - Gastrointestinal Gastrointestinal: denies: Abdominal pain - Neurological Neurological: reports: Seizures. denies: General weakness, Focal weakness, Dizziness, Memory problems - All Other Systems All Other Systems: reports: Reviewed and negative Exam - Vital Signs Reviewed Vital Signs: Yes Vital Signs: Vital Signs x48h Temp Pulse Pulse Pulse Resp BP BP 03/15/20 16:00 37.2 C 80 18 112/83 H 03/15/20 15:04 80 22 03/15/20 13:00 37 C 89 18 105/78 03/15/20 12:45 89 105/58 L 03/15/20 12:39 89 105/78 03/15/20 11:17 86 22 03/15/20 11:00 83 20 99/70 03/15/20 10:00 84 19 90/67 03/15/20 09:00 89 17 85/62 L Pulse Ox 03/15/20 16:00 98 03/15/20 15:04 03/15/20 13:00 98 03/15/20 12:45 03/15/20 12:39 03/15/20 11:17 03/15/20 11:00 96 03/15/20 10:00 96 03/15/20 09:00 - Physical Exam General Appearance: positive: No acute distress, Alert Eyes Bilateral: positive: Normal inspection, Conjunctivae nml ENT: positive: ENT inspection nml Neck: positive: Nml inspection Respiratory: negative: Chest non-tender (Tenderness to palpation over the posterior aspect of the right chest wall and the anterior aspect.) Abdomen: positive: Non-tender, No distention. negative: Tenderness Skin: positive: Other (Small area of ecchymosis over the posterior aspect of the right chest wall). negative: Warm, Dry Extremities: positive: Full ROM, No pedal edema Neurologic/Psychiatric: negative: Oriented x3, Motor nml, Disoriented to person, Disoriented to place, Disoriented to time Conclusion/Plan - Diagnosis Diagnosis: 1) Seizure disorder. 2) Right rib fractures. 3) COPD. 4) PTSD - Plan Plan: He has a known history of seizure and unfortunately, he does not want another antiepileptic does not want to adjust his current regimen. He reports having follow-up with neurologist next month. I would recommend continuing his current regimen and I encouraged the patient to follow-up with his neurologist to discuss any other potential treatment options although the patient appears to be set on his current medical regimen. - Lab Results Lab results reviewed: Yes Fish Bones: 03/15/20 04:20 03/15/20 04:20 - Diagnostic Imaging Results Diagnostic Imaging Results: positive: Final report reviewed
[2020-03-15] MEDS: ACETAMINOPHEN 325 MG TABLET PO PRN (17:51)
[2020-03-15] MEDS: oxyCODONE 5 MG TABLET PO PRN ×2 (17:52→23:33)
[2020-03-15] MEDS: THIAMINE 100 MG TABLET PO SCH (19:57)
[2020-03-15] MEDS: PRAZOSIN 1 MG CAPSULE PO SCH (20:49)
[2020-03-15] MEDS: MIRTAZAPINE 15 MG TABLET PO SCH (20:50)
[2020-03-16] MEDS: CLOBAZAM 10 MG PO SCH (03:22)
[2020-03-16] MEDS: KETOROLAC 15 MG/ML VIAL IVP SCH ×3 (03:23→11:58)
[2020-03-16] MEDS: SODIUM CHLORIDE FLUSH 0.9% 10 ML SYRINGE IVP SCH ×2 (03:24→08:16)
[2020-03-16] MEDS: oxyCODONE 5 MG TABLET PO PRN ×3 (04:30→12:28)
[2020-03-16 05:04] LABS: BASOPHILS % (AUTO) 0.6 %; EOSINOPHILS # (AUTO) 0.1 10^3/uL (0.0-0.7); EOSINOPHILS % (AUTO) 2.5 %; LYMPHOCYTES # (AUTO) 1.1 10^3/uL (1.5-3.5); LYMPHOCYTES % (AUTO) 30.3 %; MEAN CORPUSCULAR HEMOGLOBIN 35.5 pg (27.0-31.0); MEAN CORPUSCULAR HGB CONC 32.8 g/dL (32.0-36.0); MEAN CORPUSCULAR VOLUME 108.1 fL (80.0-94.0); MEAN PLATELET VOLUME 9.3 fL (7.4-11.4); MONOCYTES # (AUTO) 0.3 10^3/uL (0.0-1.0); MONOCYTES % (AUTO) 8.4 %; NEUTROPHILS # (AUTO) 2.1 10^3/uL (1.5-6.6); NEUTROPHILS % (AUTO) 57.6 %; PLT - PLATELET COUNT 137 10^3/uL (130-450); RED CELL DISTRIBUTION WIDTH 14.6 % (12.0-15.0); WHITE BLOOD COUNT 3.6 x10^3/uL (4.8-10.8)
[2020-03-16 05:21] LABS: ALBUMIN 3.8 g/dL (3.2-5.5); ALBUMIN/GLOBULIN RATIO 1.5 (1.0-2.2); BILIRUBIN,TOTAL 1.1 mg/dL (0.2-1.0); CALCIUM 8.6 mg/dL (8.5-10.3); CREATININE 0.8 mg/dL (0.6-1.2); TOTAL PROTEIN 6.4 g/dL (6.7-8.2)
[2020-03-16] MEDS: methocarbamoL 500 MG TABLET PO SCH ×2 (06:15→11:53)
[2020-03-16] MEDS: PANTOPRAZOLE 40 MG VIAL IVP SCH (07:00)
[2020-03-16] MEDS: IPRATROPIUM/ALBUTEROL 3 ML NEB INH SCH ×3 (07:09→14:52)
[2020-03-16] MEDS: ACETAMINOPHEN 325 MG TABLET PO PRN (08:12)
[2020-03-16] MEDS: polyethylene glycoL 3350 17 GM PACKET PO SCH (08:15)
[2020-03-16] MEDS: OXcarbazepine 150 MG TABLET PO SCH (08:15)
[2020-03-16] MEDS: DOCUSATE SODIUM 100 MG CAPSULE PO SCH (08:15)
[2020-03-16] MEDS: THIAMINE 100 MG TABLET PO SCH (08:16)
[2020-03-16] MEDS: NICOTINE 14 MG PATCH TOP SCH (08:18)
[2020-03-16] MEDS: HEPARIN 5,000 UNIT/ML VIAL SUBQ SCH (08:42)
[2020-03-16 12:06] VITALS: BP 128/94
--- NOTE | 2020-03-16 14:55 | PROVIDER PROGRESS NOTE ---
Progress Note Subjective 55yo Male Hospital day #1 admitted status post trauma with right scapula and right rib fractures x4 in the setting of multiple seizures. No other occult pathology noted on CT of the head, C-spine, nor chest abdomen pelvis CTs as well. Discussed case with on-call orthopedics and given radiographic findings no indication for any intervention at this time. Suggested possible use of sling as necessary. Requested hospitalist consult given the patient's history of seizure disorder to assure there is no indication for modification of his historic antiepileptic regimen. He feels overall well is eating and is eager for discharge. I explained to the patient that he will be likely able for safe discharge the next day a.m. He denies dyspnea or other complaints. Objective Afebrile hemodynamically acceptable General Appearance: positive: No acute distress Eyes Bilateral: positive: Normal inspection ENT: positive: ENT inspection nml Neck: positive: Nml inspection Respiratory: positive: Chest non-tender, No respiratory distress, Breath sounds nml. negative: Wheezes, Rales, Rhonchi Cardiovascular: positive: Regular rate & rhythm Abdomen: positive: No distention, Other. negative: Guarding, Rebound Extremities: positive: Non-tender, Full ROM, Nml appearance Neurologic/Psychiatric: positive: Oriented x3, CN's nml (2-12) Please see electronic medical record for x-ray findings however no evidence of pneumothorax in spite of multiple fractured ribs. Impression/Plan 55-year-old male admitted for fall from standing following seizure x2 with resultant right rib fractures and scapular fracture. No occult pathology noted on CT of the head. Appreciate hospitalist consultation with regard to the patient's antiepileptic regimen for which she is not interested in adding any additional medications. Patient was counseled to be cautious as it relates to driving and other activities in which he could potentially leave him and others at risk significantly. He he understands that he has a follow-up with his primary care and neurologist as well. Plan discharge within the next 24 hours. Patient responding well to pain management inpatient, respiratory therapy and mobilization. (1) GI - DC IVF, bowel regimen, advance diet as tolerated. GI ppx. (2) SURGERY/Trauma - No acute surgical intervention at this time, patient may benefit from sling for immobilization. (3) Renal/Lytes - Renal indices within normal limits. (4) Respiratory - O2. Continue IS. Nebulized treatments. (5) Heme - H/H stable. (6) Cardiovascular - HD acceptable. (7) Neuro - Opiate sparring analgesia. Antispasmodics with Robaxin. Toradol. Neuropathic agents. .Narcotics for breakthrough (8) DISPOSITION - likely discharge within 24 hours
--- NOTE | 2020-03-16 15:02 | Discharge Plan ---
Discharge Plan Problem Reviewed?: Yes Disposition: Home, Self Care Condition: Stable Prescriptions: oxyCODONE [Roxicodone] 5 mg PO Q4HR PRN #30 tablet PRN Reason: Pain methocarbamoL [Robaxin] 500 mg PO Q6HR PRN #30 tablet PRN Reason: Spasms Prazosin [Minipress] 5 mg PO QPM #30 capsule Nicotine 14 mg Patch [Nicoderm] 1 patch TOP DAILY #30 patch Pantoprazole Sodium [Protonix] 20 mg PO DAILY #30 tablet. OXcarbazepine [Trileptal] 600 mg PO BID #60 tablet Thiamine [Vitamin B-1] 100 mg PO DAILY #30 tablet Diet: Regular Shower Restrictions: No Driving Restrictions: Yes (while taking narcotics and until seen by neurology) Assistance Devices: Sling Instruction Topics: Fx Rib, Epilepsy How Seizures Affect Body, Fx Shoulder Blade Collarbone Plan of Treatment: 1. Follow-up with primary care within 1 to 2 weeks of discharge. 2. With regard to loss of consciousness, seizure disorder, call or return to ER through the change in sensorium/consciousness. 3. Continue with incentive spirometry and pain management as it relates to the rib fractures. 4. Any respiratory compromise proceed to the urgent care/ER and/or your primary care for instructions as a relates to shortness of breath or other symptoms. 5. Follow up with neurology for antiepileptic Rx. 6. Use sling as necessary. Plan of Treatment: DISCHARGE INSTRUCTIONS TEMPLATE: Call immediately or go to emergency room for any change in sensorium or fluctuations in consciousness. Use narcotics sparingly. Follow-up with orthopedics for any persistent upper extremity discomfort. Call for any shortness of breath or return to the emergency room for any worrisome symptoms as a relates to respiratory function. No heavy lifting, pushing, or pulling. Stairs are allowed, no strenuous/exertional activities. 5-10lbs weight carrying limit (i.e. gallon of milk) If provided, abdominal binder while out of bed and while ambulating. Call or proceed to clinic/ER for fevers, severe pain, nausea, vomiting, inability to pass flatus/stool, bleeding, wound redness/discharge, weakness, excessively loose stool/diarrhea, or for any other reasonably worrisome symptom or concern. Soft MECHNICAL diet, no raw vegetables, avoid high fiber foods. Colace 100mg by mouth twice to three times daily while taking narcotic pain medication. If no bowel movement in 24-48hr, may take 17g Miralax in 8oz water twice daily until bowel movement. May shower, no submersive bathing. No driving while taking narcotic pain medications and until seen by neurology. Follow up with primary care provider and/or medical subspecialist following discharge as well. No Smoking: If you smoke, Please STOP! Call for help. Follow-up with: Leah Nam ARNP [Primary Care Provider] -
--- NOTE | 2020-03-20 17:31 | DISCHARGE SUMMARY ---
"Discharge Summary Admit Date: 03/14/20 Discharge Date: 03/16/20 Discharging Provider: Claudio Mariano Status: Attempt Resuscitation Condition at Discharge: Stable Discharge Disposition: 01 Home, Self Care - DIAGNOSES Admission Diagnoses: 1. Seizure disorder 2. Multitrauma following seizure x2 3. Rib fractures 4. Scapular fracture 5. Dyspnea secondary to chest wall pain Discharge Diagnoses with Status of Each Condition: 1. Seizure disorder - Unchanged, refused additional medical management 2. Multitrauma following seizure x2 - Stable 3. Rib fractures - Stable 4. Scapular fracture - Stable 5. Dyspnea secondary to chest wall pain - Resolved/Improved - HPI History of Present Illness: History of present illness: 55-year-old male with history of seizure disorder on multiple antiepileptic's who is notable for a past history of periictal trauma including intracranial hemorrhage who presents today following 2 episodes unwitnessed seizure activity with resultant rib fractures/scapular fracture. Seen in the emergency room and requested for trauma evaluation. Patient obviously is amnestic to event. Again as per above, this was not witnessed. Patient reports having gotten up overnight having suffered seizure with resultant right chest wall pain as well as back pain, and again suffered a subsequent seizure for which she continued to have right chest pain and back pain postictal. Only significant history is prior intracranial hemorrhage by report again relate d to seizure activity. Seizure disorder diagnosed 10 years prior and unrelated to trauma or other associated inciting pathology. Past medical history and past surgical history reviewed and, in the patients, electronic medical record. Allergies reviewed and within the patient's electronic medical record. Medications reviewed and within the patient's electronic medical record. Review of systems performed and all negative except as noted below/above Please see electronic medical record for the patient's social history Trauma physical exam: Airway: Patient speaking without any respiratory distress, bilateral breath sounds auscultated across all lung morales Breathing: Bilateral breath sounds auscultated across all lung morales, imaging with no evidence of pneumothorax or hemothorax Circulation: Patient with bilateral peripheral IV access, IV crystalloids runn ing as per protocol, hemodynamically acceptable Patient was evaluated across all extremities please see below and was appropriately exposed to afford such. 1. Head: PERRLA, EOMI, no david orbital ecchymoses, ears with tympanic membranes intact no otorrhea, no rhinorrhea, c-collar NOT in place, cranial nerves II through XII intact grossly. 2. C-spine clearance: No tenderness to palpation on full range of motion: Full range of motion with no tenderness midline C-spine on flexion and exten ervin Full range of motion with known tenderness midline C-spine on lateral rotation left and right 3. Chest as per above with equal breath sounds bilaterally Right chest wall, notably posterior, tenderness - no crepitus or other concerning features please see imaging below no splinting no respiratory distress. 4. S1-S2 regular rate rhythm 5. Abdomen soft nontender nondistended no rebound no guarding, FAST performed with no fluid noted in the splenorenal space, hepatorenal space, suprapubic space, or pericardial sac. 6. Patient moving all extremities 7. GCS 15, alert awake and oriented x3 8. No focal sensorimotor deficits bilaterally, no spinal step-offs or tenderness along the thoracic, lumbar spines. 9. No genitourinary complaints or perianal complaints. Imaging: CT chest impression: 1. Unchanged emphysematous changes. 2. Linear right basilar opacity suggestive of atelectasis/dependent fluid 3. Stable 3 mm nodule since 2014. No priors are available for comparison. 4. Acute/subacute right lateral sixth, seventh as well as posterior right ninth and 10th rib fractures are present. No pneumothorax. 5. Fractures present in the inferior aspect of the right scapula CT abdomen pelvis: 1. Minimal posterior right basilar atelectasis 2. Old right rib fractures 3. No evidence of acute abdominal process CT head impression: 1. No acute intracranial process CT C-spine impression: degenerative changes without visualization fracture Right humerus x-ray: Mildly displaced fracture at the inferior angle of the scapula. Possible minimally displaced rib fractures. Right shoulder film: 1. Small mildly displaced fracture of the inferior tip of the scapula. Finding may be further evaluated with a CT if indicated clinically. 2. Questionably minimally displaced fracture of the right lateral sixth rib. Assessment and plan: 55yo Male Hospital day #0 admitted status post trauma with right scapula and right rib fractures x4 in the setting of multiple seizures. No other occult pathology noted on CT of the head, C-spine, nor chest abdomen pelvis CTs as well. Given extent of injuries patient will be admitted to ICU for pain management. Plan going forward is as follows: (1) GI - IVF, diet. GI ppx. Opiate sparring analgesia. (2) Trauma - tertiary survey. (3) Renal/Lytes - continue IVF. Renal indices within normal limits. (4) Respiratory - O2 as necessary. Continue nebulizers. Continue IS. Chest XR. (5) Heme - Will continue with DVT ppx. H/H stable. (6) Cardiovascular - HD acceptable. (7) Neuro - Opiate sparring analgesia. Continue antiepileptics. Will request medicine/hospitalist consultation to assure appropriate levels and management of seizure disorder. Antispasmodics with Robaxin. Toradol. Neuropathic agents. (8) PT/OT. - CONSULTS | PROCEDURES Consultations: Hospitalist Procedures: NONE - HOSPITAL COURSE Hospital Course: 55 yo Male admitted status post trauma with right scapula and right rib fractures x4 in the setting of multiple seizures. No other occult pathology noted on CT of head, C-spine, nor chest abdomen pelvis CTs as well. Given extent of injuries patient will be admitted to ICU for pain management. Plan going forward is as follows: (1) GI - IVF, diet. GI ppx. Opiate sparring analgesia. (2) Trauma - tertiary survey. (3) Renal/Lytes - continue IVF. Renal indices within normal limits. (4) Respiratory - O2 as necessary. Continue nebulizers. Continue IS. Chest XR. (5) Heme - Will continue with DVT ppx. H/H stable. (6) Cardiovascular - HD acceptable. (7) Neuro - Opiate sparring analgesia. Continue antiepileptics. Will request medicine/hospitalist consultation to assure appropriate levels and management of seizure disorder. Antispasmodics with Robaxin. Toradol. Neuropathic agents. (8) PT/OT. Patient admitted for pain control. No further seizures. Maintained on all all historic antiepileptics. Aggressive pain management. Physical therapy and Occupational Therapy. Sling suggested however not necessary upon discussion with orthopedics; patient may see as outpatient Ortho clinic for refractory pain or mobility. Chest x-ray with no pneumothorax, effusions, or other complications thereof from his traumatic chest injury. Hospitalist consult obtained to assure patient was optimally medically managed from a seizure prophylaxis and management standpoint. He refused any additional medications. On the day of discharge he had no worsening dyspnea, improved work of breathing, and is appropriate for discharge with tolerance of oral analgesia, oral intake, and no concerning features hemodynamically acceptable. Please note that voice recognition software was used to transcribe this note and inadvertent errors might persist in spite of review and editing. I am obliged to you for your attention. I am thankful to you for allowing me to participate with you in this care of this patient. - ALLERGIES Allergies/Adverse Reactions: Allergies Allergy/AdvReac Type Severity Reaction Status Date / Time zonisamide Allergy Unknown Verified 03/14/20 08:24 - MEDICATIONS Home Medications: Ambulatory Orders Medication Instructions Recorded Confirmed Clobazam [Onfi] 10 mg PO QPM 05/24/15 03/14/20 Mirtazapine 15 mg PO QPM 05/24/15 03/14/20 Naproxen 375 mg PO BID #20 tablet 11/24/18 03/14/20 OXcarbazepine [Trileptal] 600 mg PO BID 03/14/20 03/14/20 Prazosin HCl [Minipress] 2 mg PO QPM 03/14/20 03/14/20 Prazosin HCl [Minipress] 5 mg PO QPM 03/14/20 03/14/20 Sildenafil Citrate [Viagra] 50 - 100 mg PO PRN PRN 03/14/20 03/14/20 Acetaminophen [Tylenol] 650 mg PO Q4HR PRN tablet 03/16/20 Docusate Sodium 100Mg Capsule 100 mg PO BID capsule 03/16/20 [Colace 100Mg Capsule] Nicotine 14 mg Patch [Nicoderm] 1 patch TOP DAILY #30 patch 03/16/20 OXcarbazepine [Trileptal] 600 mg PO BID #60 tablet 03/16/20 Pantoprazole Sodium [Protonix] 20 mg PO DAILY #30 tablet. 03/16/20 Prazosin [Minipress] 5 mg PO QPM #30 capsule 03/16/20 Thiamine [Vitamin B-1] 100 mg PO DAILY #30 tablet 03/16/20 methocarbamoL [Robaxin] 500 mg PO Q6HR PRN #30 tablet 03/16/20 oxyCODONE [Roxicodone] 5 mg PO Q4HR PRN #30 tablet 03/16/20 - PHYSICAL EXAM AT DISCHARGE General Appearance: positive: No acute distress, Alert, Mild distress Eyes Bilateral: positive: Normal inspection, PERRL, EOMI ENT: positive: ENT inspection nml Neck: positive: Nml inspection Respiratory: positive: Chest non-tender, No respiratory distress, Breath sounds nml. negative: Wheezes, Rales, Rhonchi Cardiovascular: positive: Regular rate & rhythm Abdomen: positive: Non-tender, No distention. negative: Tenderness, Guarding, Rebound Skin: positive: Color nml, No rash, Warm Extremities: positive: Non-tender, Full ROM, Nml appearance Neurologic/Psychiatric: positive: Oriented x3, CN's nml (2-12), Motor nml, Sensation nml, Mood/affect nml - LABS Result Diagrams: 03/16/20 04:25 03/16/20 04:25 - DIAGNOSTIC IMAGING Diagnostic Imaging Results: Final report reviewed Diagnostic Imaging Results Comments: Imaging: CT chest impression: 1. Unchanged emphysematous changes. 2. Linear right basilar opacity suggestive of atelectasis/dependent fluid 3. Stable 3 mm nodule since 2013. No priors are available for comparison. 4. Acute/subacute right lateral sixth, seventh as well as posterior right ninth and 10th rib fractures are present. No pneumothorax. 5. Fractures present in the inferior aspect of the right scapula CT abdomen pelvis: 1. Minimal posterior right basilar atelectasis 2. Old right rib fractures 3. No evidence of acute abdominal process CT head impression: 1. No acute intracranial process CT C-spine impression: degenerative changes without visualization fracture Right humerus x-ray: Mildly displaced fracture at the inferior angle of the scapula. Possible minimally displaced rib fractures. Right shoulder film: 1. Small mildly displaced fracture of the inferior tip of the scapula. Finding may be further evaluated with a CT if indicated clinically. 2. Questionably minimally displaced fracture of the right lateral sixth rib. - SEPSIS Current Stage of Sepsis: Ruled out - FOLLOW UP Follow Up: Plan of Treatment: 1. Follow-up with primary care within 1 to 2 weeks of discharge. 2. With regard to loss of consciousness, seizure disorder, call or return to ER through the change in sensorium/consciousness. 3. Continue with incentive spirometry and pain management as it relates to the rib fractures. 4. Any respiratory compromise proceed to the urgent care/ER and/or your primary care for instructions as a relates to shortness of breath or other symptoms. 5. Follow up with neurology for antiepileptic Rx. 6. Use sling as necessary. Plan of Treatment: DISCHARGE INSTRUCTIONS TEMPLATE: Call immediately or go to emergency room for any change in sensorium or fluctuations in consciousness. Use narcotics sparingly. Follow-up with orthopedics for any persistent upper extremity discomfort. Call for any shortness of breath or return to the emergency room for any worr isome symptoms as a relates to respiratory function. No heavy lifting, pushing, or pulling. Stairs are allowed, no strenuous/exertional activities. 5-10lbs weight carrying limit (i.e. gallon of milk) If provided, abdominal binder while out of bed and while ambulating. Call or proceed to clinic/ER for fevers, severe pain, nausea, vomiting, inability to pass flatus/stool, bleeding, wound redness/discharge, weakness, excessively loose stool/diarrhea, or for any other reasonably worrisome symptom or concern. Soft MECHNICAL diet, no raw vegetables, avoid high fiber foods. Colace 100mg by mouth twice to three times daily while taking narcotic pain medication. If no bowel movement in 24-48hr, may take 17g Miralax in 8oz water twice daily until bowel movement. May shower, no submersive bathing. No driving while taking narcotic pain medications and until seen by neurology. Follow up with primary care provider and/or medical subspecialist following discharge as well. Patient had no - TIME SPENT Time Spent in Discharge (Minutes): 60"
== END 2020-03-16 15:45 | disposition home or self-care (01) | DRG 101 ==
LOC: EDUNIT# → ED 08:13 → ICU 15:54
PROVIDERS: ADMIT Surgery; ATTEND Surgery
DX: G40.909 Epilepsy, unspecified, not intractable, without status epilepticus (principal); S22.41XA Multiple fractures of ribs, right side, initial encounter for closed fracture; S42.191A Fracture of other part of scapula, right shoulder, initial encounter for closed fracture; W18.30XA Fall on same level, unspecified, initial encounter; Z79.899 Other long term (current) drug therapy; M54.9 Dorsalgia, unspecified; F17.200 Nicotine dependence, unspecified, uncomplicated; J44.9 Chronic obstructive pulmonary disease, unspecified; F43.10 Post-traumatic stress disorder, unspecified; Z20.828 Contact with and (suspected) exposure to other viral communicable diseases
CPT/HCPCS: 36415; 70450; 71045; 71250; 72125; 73030; 73060; 74177; 80053; 80156; 83690; 85025; 87150; 87635; 94640; 96374; 97116; 97161; 97165; 99285; A9270; J0131; J1170; Q9967

== ENCOUNTER 2020-12-07 13:15 | Outpatient (CLI) | payer MEDICAID ==
--- NOTE | 2020-12-07 13:51 | XRAY Report ---
PROCEDURE: Scapula 2 View RT INDICATIONS: SCAPULALGIA RT TECHNIQUE: 2 views of the scapula were acquired. COMPARISON: None FINDINGS: Bones: No fractures or dislocations. No suspicious bony lesions. Mild to moderate right acromioclav icular joint and glenohumeral joint osteoarthritic changes are seen. Subacute appearing fractures are noted involving right posterior eighth and ninth ribs. Visualized ribs appear intact. Soft tissues: Overlying soft tissues appear normal. IMPRESSION: No gross acute scapular fracture or dislocation. Acute to subacute appearing right posterior eighth a nd ninth rib fractures. No gross soft tissue abnormality. Mild to moderate right shoulder joint osteo arthritis. Reviewed by: Javi Hairston MD on 12/07/2020 1:50 PM PDT Approved by: Javi Hairston MD on 12/07/2020 1:50 PM PDT Station ID: [id number]
--- NOTE | 2020-12-07 13:53 | XRAY Report ---
PROCEDURE: Shoulder 3 View RT INDICATIONS: SHOULDER JOINT PX RT TECHNIQUE: 3 views of the shoulder were acquired. COMPARISON: None. FINDINGS: Bones: No acute shoulder fractures or dislocations. Acute to subacute appearing right posterior eigh th and ninth rib fractures are seen. [id number] right acromioclavicular joint and glenohumeral joint osteoarthritic changes are noted. No suspicious bony lesions. Visualized ribs appear intact. Soft tissues: No suspicious soft tissue calcifications. IMPRESSION: 1. No acute shoulder fracture or dislocation. Mild to moderate shoulder joint osteoarthritis. 2. Acute to subacute appearing right posterior eighth and ninth rib fractures. Reviewed by: Javi Hairston MD on 12/07/2020 1:51 PM PDT Approved by: Javi Hairston MD on 12/07/2020 1:51 PM PDT Station ID: [id number]
== END 2020-12-07 13:16 | disposition home or self-care (01) ==
LOC: DI.S 13:15
PROVIDERS: ATTEND Internal Medicine
DX: M89.8X1 Other specified disorders of bone, shoulder (principal); S22.41XA Multiple fractures of ribs, right side, initial encounter for closed fracture; M19.011 Primary osteoarthritis, right shoulder

== ENCOUNTER 2021-01-18 13:05 | Outpatient (CLI) | payer MEDICAID ==
[2021-01-18 15:20] LABS: FECAL OCCULT BLOOD (FIT) POSITIVE (NEGATIVE)
[2021-01-18 19:49] LABS: BASOPHILS % (AUTO) 0.6 %; EOSINOPHILS # (AUTO) 0.1 10^3/uL (0.0-0.7); EOSINOPHILS % (AUTO) 1.7 %; HCT - HEMATOCRIT 46.8 % (42.0-52.0); LYMPHOCYTES # (AUTO) 1.6 10^3/uL (1.5-3.5); LYMPHOCYTES % (AUTO) 30.5 %; MEAN CORPUSCULAR HEMOGLOBIN 31.5 pg (27.0-31.0); MEAN CORPUSCULAR HGB CONC 32.1 g/dL (32.0-36.0); MEAN CORPUSCULAR VOLUME 98.3 fL (80.0-94.0); MEAN PLATELET VOLUME 8.9 fL (7.4-11.4); MONOCYTES # (AUTO) 0.5 10^3/uL (0.0-1.0); MONOCYTES % (AUTO) 9.2 %; NEUTROPHILS # (AUTO) 3.1 10^3/uL (1.5-6.6); NEUTROPHILS % (AUTO) 57.8 %; PLT - PLATELET COUNT 269 10^3/uL (130-450); RED BLOOD COUNT 4.76 10^6/uL (4.70-6.10); RED CELL DISTRIBUTION WIDTH 13.3 % (12.0-15.0); WHITE BLOOD COUNT 5.4 x10^3/uL (4.8-10.8)
[2021-01-18 19:51] LABS: BILIRUBIN,URINE NEGATIVE (NEGATIVE); GLUCOSE, URINE (UA) NEGATIVE (NEGATIVE); KETONES,URINE (UA) NEGATIVE (NEGATIVE); LEUKOCYTE ESTERASE, URINE NEGATIVE (NEGATIVE); NITRITE,URINE NEGATIVE (NEGATIVE); OCCULT BLOOD,URINE NEGATIVE (NEGATIVE); PH,URINE 6.5 PH (5.0-7.5); PROTEIN,URINE NEGATIVE (NEGATIVE); UROBILINOGEN,URINE 0.2 (NORMAL) E.U./dL (NORMAL)
[2021-01-18 20:02] LABS: ALBUMIN 4.7 g/dL (3.2-5.5); ALBUMIN/GLOBULIN RATIO 1.7 (1.0-2.2); BILIRUBIN,TOTAL 0.8 mg/dL (0.2-1.0); CALCIUM 9.7 mg/dL (8.5-10.3); CREATININE 0.9 mg/dL (0.6-1.2); TOTAL PROTEIN 7.5 g/dL (6.7-8.2)
[2021-01-18 20:14] LABS: BACTERIA,URINE None Seen /HPF (None Seen); CLARITY,URINE CLEAR (CLEAR); RBC,URINE None Seen /HPF (0-5); SQUAMOUS EPITHELIAL CELL,UR NONE SEEN (<= Few); WBC,URINE 0-3 /HPF (0-3)
[2021-01-18 20:26] LABS: ESTIMATED AVERAGE GLUCOSE 103 mg/dL (70-100); HEMOGLOBIN A1c% 5.2 % (4.27-6.07)
[2021-01-20 13:17] LABS: HIV AG/AB 4TH GEN NON-REACTIVE (NON-REACTIVE)
[2021-01-20 14:36] LABS: HEPATITIS A IGM NON-REACTIVE (NON-REACTIVE); HEPATITIS B CORE ANTIBODY IGM NON-REACTIVE (NON-REACTIVE); HEPATITIS B SURFACE ANTIGEN NON-REACTIVE (NON-REACTIVE); HEPATITIS C ANTIBODY NON-REACTIVE (NON-REACTIVE)
== END 2021-01-18 13:06 | disposition home or self-care (01) ==
LOC: LAB.S 13:05
PROVIDERS: ATTEND Internal Medicine
DX: Z79.899 Other long term (current) drug therapy (principal); Z13.818 Encounter for screening for other digestive system disorders; R30.0 Dysuria; R73.9 Hyperglycemia, unspecified; Z12.5 Encounter for screening for malignant neoplasm of prostate; R63.4 Abnormal weight loss; Z12.11 Encounter for screening for malignant neoplasm of colon
CPT/HCPCS: 36415; 80053; 80074; 81001; 82274; 83036; 84153; 85025; 87086; 87389

== ENCOUNTER 2021-02-02 12:10 | Outpatient (CLI) | payer MEDICAID ==
--- NOTE | 2021-02-02 14:29 | CT Report ---
PROCEDURE: Low Dose Lung Cancer Screen INDICATIONS: CURRENT SMOKER TECHNIQUE: Noncontrast low-dose images were acquired from the pulmonary apices to the posterior costophrenic ang les. Multiplanar MIP reformats were then acquired. For radiation dose reduction, the following was used: automated exposure control, adjustment of mA and/or kV according to patient size. COMPARISON: CT chest 03/14/2020, 11/24/2018. FINDINGS: Image quality: Excellent. Lungs and pleura: A few small pulmonary nodules which are unchanged since at least 2018. For example : -Left lower lobe 0.4 cm, (4/284) -Left lower lobe 0.4 cm, (4/283) -Right upper lobe 0.2 cm, (4/178). No new or enlarging pulmonary nodules. Mild to moderate emphysematous change. Airways are clear. No p leural effusion. No pneumothorax. Mediastinum: Heart size is normal. Moderate LAD coronary artery calcifications. No pericardial effus ion. No mediastinal adenopathy by size criteria. Thoracic aorta and central pulmonary arteries are normal in size. The distal esophagus appears mildly thickened, (3/55). This measures approximately 0. 7 cm. No hiatal hernia. Bones and chest wall: No suspicious bony lesions. No vertebral body compression fractures. Prior r ight lateral seventh rib fracture. No axillary or supraclavicular adenopathy by size criteria. The t hyroid is normal in size and there are no incidental findings. Abdomen: Visualized upper abdomen solid organs and bowel loops appear normal in the absence of contr ast. IMPRESSION: 1. A few small thyroid nodules measuring 0.4 cm or less. No new or enlarging pulmonary nodules. Lung RADS-2. Recommend follow-up CT lung cancer screening in 12 months. 2. Moderate LAD coronary artery calcifications. 3. Distal esophagus appears mildly thickened. Recommend clinical correlation. This could be further e valuated with EGD. Reviewed by: Quincy Oropeza MD on 02/02/2021 2:28 PM PDT Approved by: Quincy Oropeza MD on 02/02/2021 2:28 PM PDT Station ID: [id number]
== END 2021-02-02 12:11 | disposition home or self-care (01) ==
LOC: DI 12:10
PROVIDERS: ATTEND Internal Medicine
DX: Z12.2 Encounter for screening for malignant neoplasm of respiratory organs (principal); E04.2 Nontoxic multinodular goiter; R91.8 Other nonspecific abnormal finding of lung field; F17.210 Nicotine dependence, cigarettes, uncomplicated

== ENCOUNTER 2021-02-06 10:55 | Outpatient (CLI) | payer MEDICAID ==
--- NOTE | 2021-02-06 12:51 | CT Report ---
PROCEDURE: CERVICAL SPINE WO INDICATIONS: RIGHT CERVICAL RADICULOPATHY TECHNIQUE: Noncontrast 3 mm thick sections acquired from the skull base to the T4 level. Sagittal and coronal r eformats were then constructed. For radiation dose reduction, the following was used: automated exp osure control, adjustment of mA and/or kV according to patient size. COMPARISON: 03/14/2020, 05/24/2015 FINDINGS: Image quality: Excellent. Bones: No fractures or dislocations. Visualized superior ribs are intact. There is moderate disc space narrowing seen at the C3-C4 level with mild disc space narrowing at C4-C 5. Posteriorly directed endplate osteophytes are seen at C3-C4. There is minimal retrolisthesis seen at C3-C4. Focal degenerative change can also be seen involving the C1-C2 interface anteriorly. Milde r degenerative changes are seen elsewhere. Soft tissues: Prevertebral soft tissues are normal in thickness. No paravertebral hematomas. No ap ical pneumothoraces. Atherosclerotic calcification is seen. Mild emphysematous changes can be seen a t the lung apices. IMPRESSION: Cervical spine degenerative changes are seen, which are worst at the C3-C4 level. The degenerative ch anges are similar to the CT examination one year previously. Reviewed by: Cj Engle MD on 02/06/2021 11:49 AM ANNA Approved by: Cj Engle MD on 02/06/2021 11:49 AM ANNA Station ID: [id number]
== END 2021-02-06 10:56 | disposition home or self-care (01) ==
LOC: DI 10:55
PROVIDERS: ATTEND Internal Medicine
DX: M47.812 Spondylosis without myelopathy or radiculopathy, cervical region (principal)

== ENCOUNTER 2021-04-23 16:41 | Outpatient (CLI) | payer MEDICAID ==
--- NOTE | 2021-04-23 13:21 | MRI Report ---
PROCEDURE: Shoulder RT W/O INDICATIONS: IMPINGEMENT SYNDROME OF RIGHT SHOULDER TECHNIQUE: Noncontrast oblique coronal T2 fast spin echo with fat saturation, oblique sagittal T1 spin echo and T2 fast spin echo with fat saturation, axial T1 spin echo and T2 fast spin echo with fat saturation t hrough the shoulder. COMPARISON: None. Findings: Supraspinatus: Mild tendinopathy. No evidence of tear. Infraspinatus: No evidence of tear. Subscapularis: No evidence of tear. Teres minor: No evidence of tear. Labrum: No evidence of tear. Biceps tendon: No evidence of subluxation or tear. Acromioclavicular joint: Normal alignment. Mild degeneration with T2 hyperintense signal within the articulation. Muscle: No significant atrophy. Bones: No significant abnormality. Specifically, no evidence of fracture, contusion, or necrosis. Min imal T2 hyperintense/T1 hypointense signal in the humeral head, which may reflect fibrocystic change. Miscellaneous: No glenohumeral joint effusion. No subacromial/subdeltoid bursal fluid. No intra-articular bodies. Intact coracoclavicular ligament. IMPRESSION: 1. Mild supraspinatus tendinopathy. 2. Mild AC joint arthrosis. Reviewed by: Nikhil Baeza MD on 04/23/2021 1:02 PM [facility] Approved by: Nikhil Baeza MD on 04/23/2021 1:02 PM [facility] Station ID: [id number]
== END 2021-04-23 16:42 | disposition home or self-care (01) ==
LOC: DI 16:41
PROVIDERS: ATTEND Physician Assistant
DX: M19.011 Primary osteoarthritis, right shoulder (principal); M75.91 Shoulder lesion, unspecified, right shoulder

== ENCOUNTER 2021-04-24 12:57 | Outpatient (CLI) | payer MEDICAID | END 2021-04-24 12:58 | disposition home or self-care (01) | LOC: LAB.S 12:57 | PROVIDERS: ATTEND Internal Medicine | DX: G62.9 Polyneuropathy, unspecified (principal) | CPT/HCPCS: 36415; 84425 ==

== ENCOUNTER 2021-05-16 10:25 | Outpatient (CLI) | payer MEDICAID ==
--- NOTE | 2021-05-16 13:57 | MRI Report ---
PROCEDURE: Thoracic Spine W/O INDICATIONS: THORACIC SPINE PAIN TECHNIQUE: Noncontrast sagittal T1 spine echo and T2 fast spin echo, sagittal STIR, axial T1 and T2 fast spin ec ho through the thoracic spine. COMPARISON: None. FINDINGS: Image quality: Excellent. Alignment and Curvature: There is normal bony alignment. Bone Marrow: Marrow is of normal overall signal. No acute vertebral body compression fractures. Spinal Cord: There is a single tiny focus of increased T2 signal in the cord at T9-T10, in the right posterior cord. Reference image 25/[id number] and image 6/[id number]. Statistically, this most likely represents a tiny area of focal demyelination. Paraspinous Soft Tissues: No paravertebral masses. Miscellaneous: On axial images, central canal and foramina appear widely patent at all scanned level s. IMPRESSION: 1. Tiny focus of cord signal abnormality in the right posterior cord at T9-T10. Statistically, this m ost likely represents a tiny focus of demyelination, and may indicate the presence of multiple sclero sis. Additional potential etiologies including infection and inflammation. 2. No canal stenosis or foraminal stenosis. Otherwise unremarkable cord. Comment: Recommend MS protocol brain MRI with and without contrast. Reviewed by: Juan Luis Weiss MD on 05/16/2021 1:55 PM PST Approved by: Juan Luis Weiss MD on 05/16/2021 1:55 PM PST Station ID: [id number]
--- NOTE | 2021-05-16 14:01 | MRI Report ---
PROCEDURE: Lumbar Spine W/O INDICATIONS: PERPIPHERAL NEUROPATHY FEET, BILAT LEG WEAKNESS TECHNIQUE: Noncontrast sagittal T1 spin echo and T2 fast echo, sagittal STIR, axial T1 and T2 fast spin echo thr ough the lumbar spine. In cases with scoliosis, additional coronal T2 fast spin echo may be performe d. COMPARISON: None. FINDINGS: Image quality: Excellent. Alignment and Curvature: There is normal bony alignment. Bone Marrow: Marrow is of normal overall signal. No acute vertebral body compression fractures. Spinal Cord: Conus medullaris terminates at the top of L2 level. Visualized cord demonstrates rosalinda l signal and size. Paraspinous Soft Tissues: No paravertebral masses. T12-L1: No canal stenosis or foraminal stenosis. L1-L2: No canal stenosis or foraminal stenosis. L2-L3: Minimal disc bulge. No canal stenosis or foraminal stenosis. L3-L4: Mild disc bulge. Facet hypertrophy. No canal stenosis or foraminal stenosis. L4-L5: Mild disc bulge. Facet hypertrophy. Mild canal stenosis. No significant foraminal stenosis. L5-S1: Disc bulge. Facet hypertrophy. Epidural lipomatosis. Canal stenosis is underestimated in cho ice of axial plane, moderate. Moderate bilateral foraminal narrowing with mild flattening deformity o n the exiting bilateral L5 nerve roots. IMPRESSION: 1. Multilevel facet arthropathy, multilevel disc bulges. 2. Canal stenosis is mild at L4-L5 and moderate at L5-S1. 3. There is moderate bilateral foraminal narrowing at L5-S1. Reviewed by: Juan Luis Weiss MD on 05/16/2021 1:59 PM PST Approved by: Juan Luis Weiss MD on 05/16/2021 1:59 PM PST Station ID: [id number]
== END 2021-05-16 10:26 | disposition home or self-care (01) ==
LOC: DI 10:25
PROVIDERS: ATTEND Internal Medicine
DX: M54.14 Radiculopathy, thoracic region (principal); R29.898 Other symptoms and signs involving the musculoskeletal system; G62.9 Polyneuropathy, unspecified; R93.89 Abnormal findings on diagnostic imaging of other specified body structures; M47.816 Spondylosis without myelopathy or radiculopathy, lumbar region; E88.2 Lipomatosis, not elsewhere classified; M51.36 Other intervertebral disc degeneration, lumbar region; M48.061 Spinal stenosis, lumbar region without neurogenic claudication; M51.37 Other intervertebral disc degeneration, lumbosacral region; M48.07 Spinal stenosis, lumbosacral region

== ENCOUNTER 2021-05-29 08:15 | Day surgery (SDC) | payer MEDICAID ==
[~2021-05-29 08:15] MED LIST: LACTATED RINGERS 1,000 ML IV ONE
[2021-05-29] MEDS ORDERED: LIDOCAINE-MPF 2% 5 ML VIAL ONE (08:36)
[2021-05-29] MEDS ORDERED: PROPOFOL 200 MG/20 ML VIAL IVP ONE (08:36)
--- NOTE | 2021-05-29 08:51 | ANESTHESIA ---
Pre-Anesthesia VS, & Labs - Diagnosis Abnormal CT; heme positive stool - Procedure EGD Vital Signs: Temp Pulse Resp BP Pulse Ox 36.3 C L 81 19 108/89 H 99 05/29/21 08:20 05/29/21 08:20 05/29/21 08:20 05/29/21 08:20 05/29/21 08:20 Height: 6 ft 2 in Weight (kg): 68.4 kg Body Mass Index: 19.3 BMI Classification: Healthy weight - NPO >8 hours Home Medications and Allergies Home Medications: Ambulatory Orders Cyproheptadine HCl 4 mg PO TID 05/22/21 Gabapentin [Neurontin] 300 mg PO TID 05/22/21 Ipratropium/Albuterol [Duoneb] 3 ml INH Q6H PRN 05/22/21 Rosuvastatin Calcium [Crestor] 5 mg PO QPM 05/22/21 Mirtazapine 30 mg PO QPM 05/24/15 Cyproheptadine HCl 4 mg PO TID 05/22/21 Gabapentin [Neurontin] 300 mg PO TID 05/22/21 Ipratropium/Albuterol [Duoneb] 3 ml INH Q6H PRN 05/22/21 Rosuvastatin Calcium [Crestor] 5 mg PO QPM 05/22/21 Allergies/Adverse Reactions: Allergies Allergy/AdvReac Type Severity Reaction Status Date / Time zonisamide Allergy Anaphylaxis Verified 05/29/21 08:40 Anes History & Medical History - Anesthetic History Anesthesia Complications: reports: No previous complications - Medical History Cardiovascular: reports: None Pulmonary: reports: COPD, Emphysema Gastrointestinal: reports: None Urinary: reports: None Neuro: reports: Seizure disorder (3 weeks ago last seizure), Tremors Musculoskeletal: reports: Osteoarthritis, Chronic back pain, Other Endocrine/Autoimmune: reports: None Blood Disorders: reports: None Skin: reports: None Smoking Status: Current every day smoker (1 1/2 pk per day for 40 years) Psychosocial: reports: Alcohol (2x per week) History of Cancer?: No - Surgical History Orthopedic: reports: Other (Thumb) Exam General: Alert, Oriented x3, Cooperative, No acute distress Dental: Poor dentition Mouth Openin Fingerbreadth Neck Mobility: Normal Mallampati classification: III Thyromental Distance: 4-6 cm Mental/Cognitive Status: Alert/Oriented X3, Normal for patient Plan Anesthesia Type: General, Total IV Consent for Procedure(s) Verified and Reviewed: Yes Code Status: Attempt Resuscitation ASA classification: 2-Mild systemic disease Is this case an emergency?: No
[2021-05-29] MEDS ORDERED: MIDAZOLAM 2 MG/2 ML VIAL ONE (09:41)
[2021-05-29] MEDS ORDERED: LACTATED RINGERS 300 ML IV ONE (09:54)
[2021-05-29 10:13] VITALS: BP 104/88
--- NOTE | 2021-05-29 10:32 | ANESTHESIA POST OP EVALUATION ---
Anesthesia Post Eval - Post Anesthesia Eval Vitals: Last Vital Signs Temp 37.0 C 05/29/21 09:54 Pulse 78 05/29/21 10:12 Resp 10 L 05/29/21 10:12 BP 104/88 H 05/29/21 10:12 Pulse Ox 100 05/29/21 10:12 CV Function Including HR & BP: Stable Pain Control: Satisfactory Nausea & Vomiting: Negative Mental Status: Baseline Respiratory Status: Airway Patent Hydration Status: Satisfactory Anesthesia Complications: None
== END 2021-05-29 08:16 | disposition home or self-care (01) ==
LOC: SDS 08:15
PROVIDERS: ATTEND Surgery
PROC: 0DB78ZX Excision of Stomach, Pylorus, Via Natural or Artificial Opening Endoscopic, Diagnostic (ICD-10-PCS; 2021-05-29)
PROC: 0DB28ZX Excision of Middle Esophagus, Via Natural or Artificial Opening Endoscopic, Diagnostic (ICD-10-PCS; 2021-05-29)
PROC: 0DB38ZX Excision of Lower Esophagus, Via Natural or Artificial Opening Endoscopic, Diagnostic (ICD-10-PCS; 2021-05-29)
PROC: 0DB98ZX Excision of Duodenum, Via Natural or Artificial Opening Endoscopic, Diagnostic (ICD-10-PCS; principal; 2021-05-29 09:15)
DX: R19.5 Other fecal abnormalities (principal); R63.4 Abnormal weight loss; R93.3 Abnormal findings on diagnostic imaging of other parts of digestive tract; K21.9 Gastro-esophageal reflux disease without esophagitis; I25.10 Atherosclerotic heart disease of native coronary artery without angina pectoris; Z79.899 Other long term (current) drug therapy; J43.9 Emphysema, unspecified; G40.909 Epilepsy, unspecified, not intractable, without status epilepticus; F17.210 Nicotine dependence, cigarettes, uncomplicated
CPT/HCPCS: 43239; J7120

== ENCOUNTER 2021-06-21 12:53 | Outpatient (CLI) | payer MEDICAID | END 2021-06-21 12:54 | disposition home or self-care (01) | LOC: LAB.S 12:53 | PROVIDERS: ATTEND Internal Medicine | DX: E51.9 Thiamine deficiency, unspecified (principal) | CPT/HCPCS: 84425 ==

== ENCOUNTER 2021-10-02 14:16 | Outpatient (CLI) | payer MEDICAID ==
--- NOTE | 2021-10-02 15:46 | DEXA Report ---
PROCEDURE: Dexa Spine and/or Hip INDICATIONS: SCREENING FOR OSTEOPOROSIS TECHNIQUE: Dual energy x-ray absorptiometry (DXA) was performed on a [employer] System. Regions measur ed are the AP Spine, femoral neck, and if needed forearm. COMPARISON: DEXA 03/08/2016. FINDINGS: Lumbar Spine: Bone Mineral Density 1.042 g/cm/cm,T score -1.5, osteopenia. Findings have decreased by 4.8% from 03/08/2016. Left Hip: Bone Mineral Density 0.891 g/cm/cm,T score -1.5, osteopenia. Findings have decreased by 6.9% from . Left Femoral Neck: Bone Mineral Density 0.770 g/cm/cm, T score -2.3, osteopenia (T score greater or equal to -1.0: NORMAL) (T score from -1.1 to -2.4: OSTEOPENIA) (T score less than or equal to -2.5 to: OSTEOPOROSIS) Impression: Decreased bone mineral density within the osteopenic range, which has progressed compared to the exam from 03/08/2016. Patients with diagnosis of osteoporosis or osteopenia should have regular bone mineral density assess ment. For those eligible for Medicare, routine testing is allowed once every 2 years. Testing frequ ency can be increased for patients who have rapidly progressing disease or for those who are receivin g medical therapy to restore bone mass. Reviewed by: Mohit Rodriguez MD on 10/02/2021 3:44 PM PDT Approved by: Mohit Rodriguez MD on 10/02/2021 3:44 PM PDT Station ID: [id number]
== END 2021-10-02 14:17 | disposition home or self-care (01) ==
LOC: DI 14:16
PROVIDERS: ATTEND Physician Assistant
DX: Z13.820 Encounter for screening for osteoporosis (principal); M85.89 Other specified disorders of bone density and structure, multiple sites

== ENCOUNTER 2021-12-25 09:37 | Outpatient (CLI) | payer MEDICAID ==
[2021-12-25 15:08] LABS: BASOPHILS % (AUTO) 0.5 %; EOSINOPHILS # (AUTO) 0.2 10^3/uL (0.0-0.7); EOSINOPHILS % (AUTO) 3.3 %; HCT - HEMATOCRIT 48.3 % (42.0-52.0); HGB - HEMOGLOBIN 15.5 g/dL (14.0-18.0); LYMPHOCYTES % (AUTO) 35.4 %; MEAN CORPUSCULAR HEMOGLOBIN 29.6 pg (27.0-31.0); MEAN CORPUSCULAR HGB CONC 32.1 g/dL (32.0-36.0); MEAN CORPUSCULAR VOLUME 92.2 fL (80.0-94.0); MONOCYTES # (AUTO) 0.4 10^3/uL (0.0-1.0); MONOCYTES % (AUTO) 7.6 %; NEUTROPHILS # (AUTO) 3.1 10^3/uL (1.5-6.6); PLT - PLATELET COUNT 246 10^3/uL (130-450); RED BLOOD COUNT 5.24 10^6/uL (4.70-6.10); RED CELL DISTRIBUTION WIDTH 13.2 % (12.0-15.0); WHITE BLOOD COUNT 5.8 x10^3/uL (4.8-10.8)
[2021-12-25 16:40] LABS: ALBUMIN 4.8 g/dL (3.2-5.5); ALBUMIN/GLOBULIN RATIO 1.6 (1.0-2.2); ALKALINE PHOSPHATASE 49 IU/L (42-121); ALT ALANINE AMINOTRANSFERASE 33 IU/L (10-60); AST ASPARTATE AMINOTRANSFERASE 29 IU/L (10-42); BILIRUBIN,TOTAL 0.8 mg/dL (0.2-1.0); BUN - BLOOD UREA NITROGEN 15 mg/dL (6-20); CALCIUM 9.9 mg/dL (8.5-10.3); CARBON DIOXIDE - CO2 28 mmol/L (21-32); CHLORIDE 102 mmol/L (101-111); CHOL/HDL RATIO 2.3 (<5.0); CHOLESTEROL 172 mg/dL; GFR - MDRD 77 (>89); GLUCOSE 93 mg/dL (70-100); HDL CHOLESTEROL 76 mg/dL; LDL CHOLESTEROL,CALCULATED 79 mg/dL; POTASSIUM 4.4 mmol/L (3.5-5.0); SODIUM 140 mmol/L (135-145); TOTAL PROTEIN 7.8 g/dL (6.7-8.2); TRIGLYCERIDES 83 mg/dL; VLDL CHOLESTEROL 17 mg/dL
[2021-12-25 16:46] LABS: THYROID STIMULATING HORMONE 1.97 uIU/mL (0.34-5.60)
[2021-12-25 20:45] LABS: ESTIMATED AVERAGE GLUCOSE 114 mg/dL (70-100); HEMOGLOBIN A1c% 5.6 % (4.27-6.07)
== END 2021-12-25 09:38 | disposition home or self-care (01) ==
LOC: LAB.S 09:37
PROVIDERS: ATTEND Physician Assistant
DX: I25.10 Atherosclerotic heart disease of native coronary artery without angina pectoris (principal); Z13.220 Encounter for screening for lipoid disorders; R73.9 Hyperglycemia, unspecified; Z12.5 Encounter for screening for malignant neoplasm of prostate; E51.9 Thiamine deficiency, unspecified; Z13.29 Encounter for screening for other suspected endocrine disorder
CPT/HCPCS: 36415; 80053; 80061; 83036; 83721; 84153; 84425; 84443; 85025

== ENCOUNTER 2021-12-28 12:41 | Outpatient (CLI) | payer MEDICAID ==
--- NOTE | 2021-12-28 16:40 | Ultrasound Report ---
PROCEDURE: Duplex Ext Veins Bilateral INDICATIONS: MIGUELINA BRAZLE TECHNIQUE: Real-time imaging, as well as color and pulse Doppler interrogation, were performed of the deep veins of both legs from the inguinal ligament to the popliteal fossa. COMPARISON: None FINDINGS: The deep veins are normally compressible, and free of intraluminal thrombus. Color and pu lse Doppler demonstrate normal phasic intravascular flow. There is normal augmentation response to d istal compression maneuver. IMPRESSION: No evidence of lower extremity DVT bilaterally. Reviewed by: Sukhjinder Pearl MD on 12/28/2021 4:38 PM PDT Approved by: Sukhjinder Pearl MD on 12/28/2021 4:38 PM PDT Station ID: [id number]
--- NOTE | 2021-12-28 16:54 | Ultrasound Report ---
PROCEDURE: Duplex Lwr Ext Arterial Bilat INDICATIONS: BILATERAL LOWER EXTREMITY EDEMA TECHNIQUE: Color and pulse Doppler interrogation was performed of both lower extremity arterial systems, with im age documentation. COMPARISON: None FINDINGS: Right lower extremity: Common femoral artery: 64.4 cm/sec, with triphasic flow. Deep femoral artery: 67.6 cm/sec, with triphasic flow. Proximal superficial femoral artery: 66.0 cm/sec, with triphasic flow. Mid superficial femoral artery: 80.5 cm/sec, with triphasic flow. Distal superficial femoral artery: 70.1 cm/sec, with triphasic flow. Popliteal artery: 34.8 cm/sec, with triphasic flow. Posterior tibial artery: 54.1 cm/sec, with triphasic flow. Anterior tibial artery/dorsalis pedis: 32.6/18.8 cm/sec, with triphasic flow. Briceno-scale imaging description: Plaque. Widely patent vessels Left lower extremity: Common femoral artery: 57.7 cm/sec, with triphasic flow. Deep femoral artery: 4.5 cm/sec, with triphasic flow. Proximal superficial femoral artery: 85.7 cm/sec, with triphasic flow. Mid superficial femoral artery: 92.0 cm/sec, with triphasic flow. Distal superficial femoral artery: 53.7 cm/sec, with triphasic flow. Popliteal artery: 48.2 cm/sec, with triphasic flow. Posterior tibial artery: 46.4 cm/sec, with triphasic flow. Anterior tibial artery/dorsalis pedis: 38.6/25.2 cm/sec, with triphasic flow. Briceno-scale imaging description: Plaque. Widely patent vessels. IMPRESSION: 1. There is bilateral plaque present. 2. No evidence of inflow stenosis. 3. Widely patent vessels with normal triphasic waveforms. Reviewed by: Juan Luis Weiss MD on 12/28/2021 4:53 PM PDT Approved by: Juan Luis Weiss MD on 12/28/2021 4:53 PM PDT Station ID: [id number]
== END 2021-12-28 12:42 | disposition home or self-care (01) ==
LOC: DI 12:41
PROVIDERS: ATTEND Physician Assistant
DX: R60.0 Localized edema (principal); I70.203 Unspecified atherosclerosis of native arteries of extremities, bilateral legs
CPT/HCPCS: 93925; 93970

== ENCOUNTER 2022-08-15 14:44 | Outpatient (CLI) | payer MEDICAID ==
--- NOTE | 2022-08-15 16:41 | XRAY Report ---
PROCEDURE: Shoulder 3 View RT INDICATIONS: RIGHT SHOULDER PAIN TECHNIQUE: 3 views of the shoulder were acquired. COMPARISON: None. FINDINGS: Bones: No fractures or dislocations. No suspicious bony lesions. Visualized ribs appear intact. Mild periareolar articular osteophyte formation at the acromioclavicular and glenohumeral joints. Soft tissues: No suspicious soft tissue calcifications. IMPRESSION: Osteoarthritis. No acute fracture. No osseous lesion. If symptoms and/or clinical suspici on for pathology continue, further assessment with repeat plain films, or advanced imaging (e.g., CT, MRI, or bone scan) is recommended for further assessment. Reviewed by: Sukhjinder Pearl MD on 08/15/2022 4:40 PM PDT Approved by: Sukhjinder Pearl MD on 08/15/2022 4:40 PM PDT Station ID: [id number]
== END 2022-08-15 23:59 | disposition home or self-care (01) ==
LOC: DI.S 14:44
PROVIDERS: ATTEND Physician Assistant
DX: M19.011 Primary osteoarthritis, right shoulder (principal)

== ENCOUNTER 2022-08-26 15:06 | Outpatient (CLI) | payer MEDICAID ==
--- NOTE | 2022-08-26 14:55 | XRAY Report ---
PROCEDURE: Shoulder 1 View RT INDICATIONS: RIGHT SHOULDER AXILLARY ONLY TECHNIQUE: 1 view of the shoulder were acquired. COMPARISON: None. FINDINGS: Bones: No fractures or dislocations. No suspicious bony lesions. Visualized ribs appear intact. Soft tissues: No suspicious soft tissue calcifications. IMPRESSION: No acute radiographic findings. Reviewed by: Suzy Bradley MD on 08/26/2022 2:53 PM PDT Approved by: Suzy Bradley MD on 08/26/2022 2:53 PM PDT Station ID: [id number]
== END 2022-08-26 15:07 | disposition home or self-care (01) ==
LOC: DI.WOS 15:06
PROVIDERS: ATTEND Physician Assistant Surgical
DX: M25.511 Pain in right shoulder (principal)

== ENCOUNTER 2022-12-27 14:21 | Outpatient (CLI) | payer MEDICAID ==
[2022-12-27 20:03] LABS: BASOPHILS % (AUTO) 0.5 %; EOSINOPHILS # (AUTO) 0.2 10^3/uL (0.0-0.7); EOSINOPHILS % (AUTO) 3.7 %; HCT - HEMATOCRIT 45.1 % (42.0-52.0); HGB - HEMOGLOBIN 14.5 g/dL (14.0-18.0); LYMPHOCYTES # (AUTO) 1.7 10^3/uL (1.5-3.5); LYMPHOCYTES % (AUTO) 30.3 %; MEAN CORPUSCULAR HEMOGLOBIN 30.7 pg (27.0-31.0); MEAN CORPUSCULAR HGB CONC 32.2 g/dL (32.0-36.0); MEAN CORPUSCULAR VOLUME 95.6 fL (80.0-94.0); MEAN PLATELET VOLUME 8.9 fL (7.4-11.4); MONOCYTES # (AUTO) 0.4 10^3/uL (0.0-1.0); NEUTROPHILS # (AUTO) 3.3 10^3/uL (1.5-6.6); NEUTROPHILS % (AUTO) 58.1 %; PLT - PLATELET COUNT 208 10^3/uL (130-450); RED BLOOD COUNT 4.72 10^6/uL (4.70-6.10); RED CELL DISTRIBUTION WIDTH 13.7 % (12.0-15.0); WHITE BLOOD COUNT 5.7 x10^3/uL (4.8-10.8)
[2022-12-27 20:11] LABS: ALBUMIN 4.7 g/dL (3.2-5.5); ALBUMIN/GLOBULIN RATIO 2.1 (1.0-2.2); ALKALINE PHOSPHATASE 55 IU/L (42-121); ALT ALANINE AMINOTRANSFERASE 25 IU/L (10-60); AST ASPARTATE AMINOTRANSFERASE 26 IU/L (10-42); BILIRUBIN,TOTAL 0.6 mg/dL (0.2-1.0); BUN - BLOOD UREA NITROGEN 17 mg/dL (6-20); CALCIUM 9.4 mg/dL (8.5-10.3); CARBON DIOXIDE - CO2 29 mmol/L (21-32); CHLORIDE 102 mmol/L (101-111); CHOL/HDL RATIO 1.7 (<5.0); CHOLESTEROL 150 mg/dL; CREATININE 0.8 mg/dL (0.6-1.3); GFR - MDRD 99 (>89); GLUCOSE 98 mg/dL (74-104); HDL CHOLESTEROL 86 mg/dL; LDL CHOLESTEROL,CALCULATED 56 mg/dL; LDL/HDL RATIO 0.7 (<3.6); POTASSIUM 4.1 mmol/L (3.5-4.5); SODIUM 136 mmol/L (135-145); TOTAL PROTEIN 6.9 g/dL (6.4-8.9); TRIGLYCERIDES 42 mg/dL (48-352); VLDL CHOLESTEROL 8 mg/dL
[2022-12-27 20:25] LABS: THYROID STIMULATING HORMONE 2.64 uIU/mL (0.34-5.60)
[2023-01-01 15:09] LABS: A/G RATIO 1.4 (0.7-1.7); ALBUMIN 3.9 g/dL (2.9-4.4); ALPHA-1-GLOBULIN 0.3 g/dL (0.0-0.4); ALPHA-2-GLOBULIN 0.6 g/dL (0.4-1.0); BETA GLOBULIN 0.9 g/dL (0.7-1.3); GAMMA GLOBULIN 0.9 g/dL (0.4-1.8); GLOBULIN, TOTAL 2.7 g/dL (2.2-3.9); PROTEIN TOTAL 6.6 g/dL (6.0-8.5)
== END 2022-12-27 14:22 | disposition home or self-care (01) ==
LOC: LAB.S 14:21
PROVIDERS: ATTEND Physician Assistant
DX: G62.9 Polyneuropathy, unspecified (principal); Z13.220 Encounter for screening for lipoid disorders
CPT/HCPCS: 36415; 80053; 80061; 81599; 82607; 82746; 82784; 83721; 84155; 84165; 84425; 84439; 84443; 85025; 86334

== ENCOUNTER 2023-07-10 08:00 | Outpatient (CLI) | payer MEDICAID ==
--- NOTE | 2023-07-10 17:14 | XRAY Report ---
PROCEDURE: Shoulder 3 View RT INDICATIONS: RIGHT SHOULDER PAIN TECHNIQUE: 4 views of the shoulder were acquired. COMPARISON: None. FINDINGS: Bones: No fractures or dislocations. No suspicious bony lesions. Visualized ribs appear intact. 2 mm rounded calcification projecting inferior to the glenoid. Soft tissues: No suspicious soft tissue calcifications. The visualized lungs are within normal limi ts. IMPRESSION: 2 mm rounded calcification projecting inferior to the glenoid, probably a joint loose body. No acute bony abnormality otherwise. Reviewed by: Rylan Vera MD on 07/10/2023 5:13 PM PDT Approved by: Rylan Vera MD on 07/10/2023 5:13 PM PDT Station ID: [id number]
== END 2023-07-10 23:59 | disposition home or self-care (01) ==
LOC: DI.WOS 08:00
PROVIDERS: ATTEND Physician Assistant Surgical
DX: M25.811 Other specified joint disorders, right shoulder (principal)

== ENCOUNTER 2023-12-19 10:39 | Outpatient (CLI) | payer MEDICAID ==
[2023-12-19 10:57] LABS: BASOPHILS % (AUTO) 0.7 %; EOSINOPHILS # (AUTO) 0.1 10^3/uL (0.0-0.7); EOSINOPHILS % (AUTO) 2.5 %; HCT - HEMATOCRIT 43.9 % (42.0-52.0); HGB - HEMOGLOBIN 14.3 g/dL (14.0-18.0); LYMPHOCYTES # (AUTO) 1.8 10^3/uL (1.5-3.5); MEAN CORPUSCULAR HEMOGLOBIN 31.4 pg (27.0-31.0); MEAN CORPUSCULAR HGB CONC 32.6 g/dL (32.0-36.0); MEAN CORPUSCULAR VOLUME 96.5 fL (80.0-94.0); MEAN PLATELET VOLUME 8.9 fL (7.4-11.4); MONOCYTES # (AUTO) 0.4 10^3/uL (0.0-1.0); MONOCYTES % (AUTO) 7.1 %; NEUTROPHILS # (AUTO) 3.2 10^3/uL (1.5-6.6); NEUTROPHILS % (AUTO) 57.3 %; PLT - PLATELET COUNT 176 10^3/uL (130-450); RED BLOOD COUNT 4.55 10^6/uL (4.70-6.10); RED CELL DISTRIBUTION WIDTH 12.9 % (12.0-15.0); WHITE BLOOD COUNT 5.5 x10^3/uL (4.8-10.8)
[2023-12-19 11:09] LABS: ALBUMIN 4.6 g/dL (3.2-5.5); ALBUMIN/GLOBULIN RATIO 2.2 (1.0-2.2); ALKALINE PHOSPHATASE 52 IU/L (42-121); ALT ALANINE AMINOTRANSFERASE 20 IU/L (10-60); AST ASPARTATE AMINOTRANSFERASE 24 IU/L (10-42); BILIRUBIN,TOTAL 0.6 mg/dL (0.2-1.0); BUN - BLOOD UREA NITROGEN 14 mg/dL (6-20); CALCIUM 9.5 mg/dL (8.5-10.3); CARBON DIOXIDE - CO2 29 mmol/L (21-32); CHLORIDE 105 mmol/L (101-111); CHOL/HDL RATIO 1.6 (<5.0); CHOLESTEROL 139 mg/dL; CREATININE 0.8 mg/dL (0.6-1.3); GFR - MDRD 99 (>89); GLUCOSE 99 mg/dL (74-104); HDL CHOLESTEROL 89 mg/dL; LDL CHOLESTEROL,CALCULATED 40 mg/dL; LDL/HDL RATIO 0.4 (<3.6); SODIUM 141 mmol/L (135-145); TOTAL PROTEIN 6.7 g/dL (6.4-8.9); TRIGLYCERIDES 51 mg/dL; VLDL CHOLESTEROL 10 mg/dL
[2023-12-19 11:21] LABS: THYROID STIMULATING HORMONE 1.56 uIU/mL (0.34-5.60)
== END 2023-12-19 10:40 | disposition home or self-care (01) ==
LOC: LAB 10:39
PROVIDERS: ATTEND Physician Assistant
DX: G62.9 Polyneuropathy, unspecified (principal); Z13.220 Encounter for screening for lipoid disorders; E51.9 Thiamine deficiency, unspecified; Z13.29 Encounter for screening for other suspected endocrine disorder
CPT/HCPCS: 36415; 80053; 80061; 82607; 83721; 84425; 84443; 85025